=== PATIENT | female | born 1955 | race Caucasian/White ===

== ENCOUNTER 2018-07-15 11:10 | Inpatient (IN) | payer MEDICAID ==
[~2018-07-15] VITALS: Ht 170.2 cm; Wt 58.9 kg
[2018-07-15] MEDS ORDERED: ONDANSETRON 2MG/ML, 2ML IVPush ONE (12:00)
[2018-07-15] MEDS ORDERED: SODIUM CHLORIDE FLUSH 10ML SYR IVF ONE (12:00)
[2018-07-15 12:08] LABS: BASOPHILS # (AUTO) 0.05 x10^3/uL (0-0.1); BASOPHILS % (AUTO) 1 % (0-1); EOSINOPHILS # (AUTO) 0.15 x10^3/uL (0-0.4); EOSINOPHILS % (AUTO) 3 % (1-7); LYMPHOCYTES # (AUTO) 1.78 x10^3/uL (1-3.4); LYMPHOCYTES % (AUTO) 36 % (22-44); MD NO; MEAN CORPUSCULAR HEMOGLOBIN 33.8 pg (27.0-34.8); MEAN CORPUSCULAR HGB CONC 34.1 g/dL (32.4-35.8); MEAN CORPUSCULAR VOLUME 99.1 fL (80-100); MEAN PLATELET VOLUME 7.7 fL (7.4-10.4); MONOCYTES # (AUTO) 0.51 x10^3/uL (0.2-0.8); MONOCYTES % (AUTO) 10 % (2-9); NEUTROPHILS # (AUTO) 2.52 x10^3/uL (1.8-6.8); NEUTROPHILS % (AUTO) 50 % (42-75); PLATELET COUNT 314 x10^3/uL (130-400); RED BLOOD COUNT 3.72 x10^6/uL (3.82-5.3); RED CELL DISTRIBUTION WIDTH 13.8 % (9.6-15.2)
--- NOTE | 2018-07-15 12:10 | NUR ---
PT HERE FOR GENERALIZED WEAKNESS AND DETRIATING AT HOME. PT LOST SON 6 MONTHS AGO AND HAS BEEN VERY DEPRESSED. PT REPORTS SHE HAS HAD VARIOUS GI SYMPTOMS AND HAS HAD N/V/D. PT DENIES ANY TRAUMA. PT HAD ETOH TODAY. PT VSS AND PT IS TEARFUL. PT ON ARRIVAL CONNECTED TO MONITORS AND CALL LIGHT IN REACH. AWAITING FURHTER ORDERS. PT IS A/OX4 AND INDEPENDANT.
[2018-07-15 12:12] LABS: ALBUMIN 3.5 g/dL (3.4-5.0); ANION GAP 8 mmol/L (5-15); CALCIUM 8.5 mg/dL (8.5-10.1); CHLORIDE 100 mmol/L (98-107)
[2018-07-15 12:18] LABS: ALANINE AMINOTRANSFERASE 56 U/L (12-78); ALKALINE PHOSPHATASE 248 U/L (45-117); BILIRUBIN,TOTAL 0.8 mg/dL (0.2-1.0); CREATININE 0.79 mg/dL (0.55-1.02); TOTAL PROTEIN 7.7 g/dL (6.4-8.2)
[2018-07-15] MEDS ORDERED: ONDANSETRON 2MG/ML, 2ML ONE (13:02)
--- NOTE | 2018-07-15 13:07 | NUR ---
COMFORT BLANKET PROVIDED. PT REASSURED THAT WE ARE MONITORING HER. PT HELPED TO RESTROOM AND STOOL SAMPLE COLLECTED AND WALKED TO LABS.
[2018-07-15] MEDS ORDERED: KETOROLAC 30 MG/1 ML ONE (13:30)
[2018-07-15] MEDS ORDERED: KETOROLAC 30 MG/1 ML IVPush ONE (13:30)
[2018-07-15 13:50] LABS: CLOSTRIDIUM DIFFICILE ANTIGEN NEGATIVE; CLOSTRIDIUM DIFFICILE TOXIN NEGATIVE (Negative)
[2018-07-15] MEDS ORDERED: ALBUTEROL/IPRATROPIUM 2.5MG/0.5MG, 3 ML NPPB ONE (14:00)
--- NOTE | 2018-07-15 14:05 | NUR ---
PT MEDICATED PER EMAR AT THIS TIME.
[2018-07-15] MEDS ORDERED: ALBUTEROL/IPRATROPIUM 2.5MG/0.5MG, 3 ML ONE (14:21)
--- NOTE | 2018-07-15 14:28 | NUR ---
RT TO BEDSIDE AT THIS TIME.
--- NOTE | 2018-07-15 14:39 | NUR ---
PT [facility] ON 2L NC.
[2018-07-15] MEDS ORDERED: SODIUM CHLORIDE FLUSH 10ML SYR IVF PRN (16:00)
--- NOTE | 2018-07-15 16:27 | NUR ---
PT PLACED ON HOSPITAL BED.
--- NOTE | 2018-07-15 16:54 | NUR ---
HOSPITALIST TO BEDSIDE.
--- NOTE | 2018-07-15 17:04 | NUR ---
REPORT TO DARLIN RN
[2018-07-15] MEDS ORDERED: HALOPERIDOL 5 MG/ML IM PRN (17:30)
[2018-07-15] MEDS ORDERED: ACETAMINOPHEN 325 MG TABLET PO PRN (17:30)
[2018-07-15] MEDS ORDERED: hydrALAzine 20 MG/ML, 1ML IVPush PRN (17:30)
[2018-07-15] MEDS ORDERED: POLYETHYLENE GLYCOL 17 GM PACKET PO PRN (17:30)
[2018-07-15] MEDS ORDERED: ONDANSETRON 2MG/ML, 2ML IVPush PRN (17:30)
[2018-07-15] MEDS ORDERED: LORazepam 2 MG/ML, 1ML IVPush PRN (18:30)
[2018-07-15 19:19] VITALS: BP 124/79
[2018-07-15] MEDS ORDERED: CARV-39 PO (19:42)
[2018-07-15] MEDS: CARVEDILOL 3.125 MG TABLET PO SCH (20:04)
[2018-07-15] MEDS: KETOROLAC 30 MG/1 ML IVPush SCH (20:04)
[2018-07-15] MEDS: LORazepam 2 MG/ML, 1ML IVPush PRN (20:04)
[2018-07-15] MEDS ORDERED: LOSA50TA14 PO (20:05)
[2018-07-15] MEDS ORDERED: ATOR40TA78 PO (20:05)
[2018-07-15] MEDS: NICOTINE 14MG/24 HR PATCH.TD24 TD SCH (22:09)
[2018-07-15] MEDS: ENOXAPARIN 40 MG/0.4 ML SQ SCH (22:10)
[2018-07-15] MEDS: METHOCARBAMOL 500 MG TABLET PO SCH (22:10)
[2018-07-15] MEDS: PANTOPROZOLE 40MG TABLET PO SCH (22:10)
[2018-07-15] MEDS: CEFTRIAXONE PMX 2GM/50ML 50 ML IV SCH (22:10)
[2018-07-15] MEDS ORDERED: ALBUTEROL SULFATE 2.5 MG/3 ML NPPB PRN (22:30)
[2018-07-15] MEDS: AZITHROMYCIN 500 MG in SODIUM CHLORIDE 0.9% 250 ML IV SCH (23:15)
[2018-07-15] MEDS ORDERED: OMNIPAQUE 350 MG/ML, 100ML BOTTLE ONE (23:17)
[2018-07-16 00:22] VITALS: BP 156/95
[2018-07-16] MEDS: METHOCARBAMOL 500 MG TABLET PO SCH ×3 (02:45→14:10)
[2018-07-16] MEDS: KETOROLAC 30 MG/1 ML IVPush SCH ×3 (02:45→14:09)
[2018-07-16] MEDS: PANTOPROZOLE 40MG TABLET PO SCH ×2 (05:40→21:17)
[2018-07-16] MEDS: CARVEDILOL 3.125 MG TABLET PO SCH ×2 (05:40→18:00)
[2018-07-16] MEDS: LORazepam 2 MG/ML, 1ML IVPush PRN ×3 (05:41→21:16)
[2018-07-16 05:44] LABS: BASOPHILS # (AUTO) 0.04 x10^3/uL (0-0.1); BASOPHILS % (AUTO) 1 % (0-1); EOSINOPHILS % (AUTO) 0 % (1-7); LYMPHOCYTES % (AUTO) 11 % (22-44); MD NO; MEAN CORPUSCULAR HEMOGLOBIN 34.2 pg (27.0-34.8); MEAN CORPUSCULAR HGB CONC 34.4 g/dL (32.4-35.8); MEAN CORPUSCULAR VOLUME 99.4 fL (80-100); MONOCYTES # (AUTO) 0.37 x10^3/uL (0.2-0.8); MONOCYTES % (AUTO) 6 % (2-9); NEUTROPHILS # (AUTO) 5.59 x10^3/uL (1.8-6.8); NEUTROPHILS % (AUTO) 83 % (42-75); PLATELET COUNT 242 x10^3/uL (130-400); RED BLOOD COUNT 3.46 x10^6/uL (3.82-5.3); RED CELL DISTRIBUTION WIDTH 13.6 % (9.6-15.2)
[2018-07-16 05:48] LABS: ANION GAP 8 mmol/L (5-15); CALCIUM 8.3 mg/dL (8.5-10.1); CHLORIDE 101 mmol/L (98-107)
[2018-07-16 05:54] LABS: ALANINE AMINOTRANSFERASE 53 U/L (12-78); ALKALINE PHOSPHATASE 225 U/L (45-117); BILIRUBIN,TOTAL 0.5 mg/dL (0.2-1.0); CHOL/HDL RATIO 1.4; CHOLESTEROL, TOTAL 181 mg/dL (140-239); HDL CHOLESTEROL (DIRECT) 129 mg/dL (40-60); TOTAL PROTEIN 6.7 g/dL (6.4-8.2); TRIGLYCERIDES 42 mg/dL (50-200); VLDL CHOLESTEROL 8 mg/dL (0-25)
[2018-07-16 05:55] LABS: HDL CHOL % 71 % (28-40); LDL CHOLESTEROL,CALCULATED 44 mg/dL (54-169); LDL/HDL RATIO 0.3 (0.5-3.0)
[2018-07-16 07:13] VITALS: BP 132/84
[2018-07-16] MEDS: FUROSEMIDE 40 MG TABLET PO SCH (09:01)
[2018-07-16] MEDS: POTASSIUM CHLORIDE 20 MEQ PACKET PO SCH (09:01)
[2018-07-16 12:44] VITALS: BP 138/89
[2018-07-16 13:01] LABS: AMPHETAMINE SCREEN, URINE Negative (Negative); BARBITURATE SCREEN, URINE Negative (Negative); BENZODIAZEPINE SCREEN, URINE Negative (Negative); CANNABINOID SCREEN, URINE Positive (Negative); COCAINE SCREEN, URINE Negative (Negative); METHADONE SCREEN, URINE Negative (Negative); OPIATE SCREEN, URINE Negative (Negative)
[2018-07-16 19:02] VITALS: BP 136/90
[2018-07-16] MEDS ORDERED: KETOROLAC 30 MG/1 ML IV PRN (20:00)
[2018-07-16] MEDS ORDERED: MAGNESIUM SULFATE 4 GM in SODIUM CHLORIDE 0.9% 100 ML IV ONE (20:00)
[2018-07-16] MEDS: CEFTRIAXONE PMX 2GM/50ML 50 ML IV SCH (21:16)
[2018-07-16] MEDS: ENOXAPARIN 40 MG/0.4 ML SQ SCH (21:17)
[2018-07-16] MEDS: NICOTINE 14MG/24 HR PATCH.TD24 TD SCH (21:17)
[2018-07-16] MEDS: AZITHROMYCIN 500 MG in SODIUM CHLORIDE 0.9% 250 ML IV SCH (23:55)
[2018-07-17 00:20] VITALS: BP 156/105
[2018-07-17] MEDS: CARVEDILOL 3.125 MG TABLET PO SCH ×2 (05:21→17:49)
[2018-07-17] MEDS: LORazepam 2 MG/ML, 1ML IVPush PRN ×5 (05:21→22:27)
[2018-07-17] MEDS: PANTOPROZOLE 40MG TABLET PO SCH ×2 (05:21→21:33)
[2018-07-17 07:27] VITALS: BP 147/96
[2018-07-17 07:37] LABS: ALANINE AMINOTRANSFERASE 47 U/L (12-78); ALBUMIN 2.9 g/dL (3.4-5.0); ANION GAP 8 mmol/L (5-15); CALCIUM 8.1 mg/dL (8.5-10.1); CHLORIDE 102 mmol/L (98-107); CREATININE 0.89 mg/dL (0.55-1.02)
[2018-07-17 07:39] LABS: ALKALINE PHOSPHATASE 194 U/L (45-117); BILIRUBIN,TOTAL 0.4 mg/dL (0.2-1.0); TOTAL PROTEIN 6.6 g/dL (6.4-8.2)
[2018-07-17] MEDS ORDERED: ALBUTEROL/IPRATROPIUM 2.5MG/0.5MG, 3 ML ONE (08:30)
[2018-07-17] MEDS ORDERED: ALBUTEROL/IPRATROPIUM 2.5MG/0.5MG, 3 ML NPPB PRN ×2 (09:00)
[2018-07-17] MEDS: PROPRANOLOL 20 MG TABLET PO SCH ×3 (09:06→22:27)
[2018-07-17] MEDS: FUROSEMIDE 40 MG TABLET PO SCH (09:06)
[2018-07-17] MEDS: POTASSIUM CHLORIDE 20 MEQ PACKET PO SCH (09:06)
[2018-07-17 13:30] VITALS: BP 165/105
[2018-07-17] MEDS: CHLORDIAZEPOXIDE 25 MG CAPSULE PO SCH ×3 (13:33→21:34)
[2018-07-17] MEDS: BACLOFEN 10 MG TABLET PO SCH ×2 (17:49→21:00)
[2018-07-17 18:57] VITALS: BP 138/88
[2018-07-17] MEDS: CEFTRIAXONE PMX 2GM/50ML 50 ML IV SCH (21:32)
[2018-07-17] MEDS: NICOTINE 14MG/24 HR PATCH.TD24 TD SCH (21:33)
[2018-07-17] MEDS: ENOXAPARIN 40 MG/0.4 ML SQ SCH (21:33)
[2018-07-17] MEDS: AZITHROMYCIN 500 MG in SODIUM CHLORIDE 0.9% 250 ML IV SCH (23:05)
[2018-07-18 00:49] VITALS: BP 152/95
[2018-07-18] MEDS: LORazepam 2 MG/ML, 1ML IVPush PRN ×5 (04:00→22:22)
[2018-07-18] MEDS: CHLORDIAZEPOXIDE 25 MG CAPSULE PO SCH ×4 (05:38→20:50)
[2018-07-18] MEDS: PROPRANOLOL 20 MG TABLET PO SCH ×3 (05:38→21:19)
[2018-07-18] MEDS: PANTOPROZOLE 40MG TABLET PO SCH ×2 (05:38→20:50)
[2018-07-18] MEDS: CARVEDILOL 3.125 MG TABLET PO SCH ×2 (05:38→18:07)
[2018-07-18 07:10] VITALS: BP 145/94
[2018-07-18] MEDS: FUROSEMIDE 40 MG TABLET PO SCH (08:36)
[2018-07-18] MEDS: POTASSIUM CHLORIDE 20 MEQ PACKET PO SCH (08:36)
[2018-07-18] MEDS: BACLOFEN 10 MG TABLET PO SCH ×3 (08:36→20:50)
[2018-07-18] MEDS ORDERED: POTASSIUM CHLORIDE 20 MEQ, MAGNESIUM SULFATE 1 GM, THIAMINE 200 MG, FOLIC ACID 1 MG, MV... IV SCH (12:00)
[2018-07-18] MEDS ORDERED: POTASSIUM CHLORIDE 20 MEQ, MAGNESIUM SULFATE 1 GM, FOLIC ACID 1 MG, MVI ADULT 10 ML in ... IV SCH (12:52)
[2018-07-18 13:07] VITALS: BP 131/91
[2018-07-18 19:13] VITALS: BP 110/72
[2018-07-18] MEDS: CEFTRIAXONE PMX 2GM/50ML 50 ML IV SCH (20:50)
[2018-07-18] MEDS: ENOXAPARIN 40 MG/0.4 ML SQ SCH (20:51)
[2018-07-18] MEDS: NICOTINE 14MG/24 HR PATCH.TD24 TD SCH (20:51)
[2018-07-18] MEDS: AZITHROMYCIN 500 MG in SODIUM CHLORIDE 0.9% 250 ML IV SCH (23:19)
[2018-07-19 00:37] VITALS: BP 118/82
[2018-07-19] MEDS: LORazepam 2 MG/ML, 1ML IVPush PRN (02:54)
[2018-07-19] MEDS: PROPRANOLOL 20 MG TABLET PO SCH (06:22)
[2018-07-19] MEDS: PANTOPROZOLE 40MG TABLET PO SCH (06:22)
[2018-07-19] MEDS: CHLORDIAZEPOXIDE 25 MG CAPSULE PO SCH ×2 (06:23→11:02)
[2018-07-19] MEDS: CARVEDILOL 3.125 MG TABLET PO SCH (06:23)
[2018-07-19] MEDS: BACLOFEN 10 MG TABLET PO SCH (08:11)
[2018-07-19] MEDS: POTASSIUM CHLORIDE 20 MEQ PACKET PO SCH (08:11)
[2018-07-19] MEDS: FUROSEMIDE 40 MG TABLET PO SCH (08:11)
[2018-07-19] MEDS ORDERED: THIAMINE 100MG TABLET PO SCH (09:00)
[2018-07-19] MEDS ORDERED: PANT40TA5 PO (10:22)
[2018-07-19] MEDS ORDERED: NICO-486 TD (10:22)
[2018-07-19] MEDS ORDERED: FURO40TA6 PO (10:22)
[2018-07-19] MEDS ORDERED: AZIT500T5 PO (10:22)
[2018-07-19] MEDS ORDERED: POTA20PA25 PO (10:22)
[2018-07-19] MEDS ORDERED: librium PO (10:22)
[2018-07-19] MEDS ORDERED: PROP20TA PO (10:22)
[2018-07-19] MEDS ORDERED: FOLI-17 PO (10:22)
[2018-07-19] MEDS ORDERED: CARV6.2512 PO (10:22)
[2018-07-19] MEDS ORDERED: ONDA4TAB7 PO (10:22)
[2018-07-19] MEDS ORDERED: TRAM50TA2 PO (10:22)
[2018-07-19] MEDS ORDERED: BACL-19 PO (10:22)
[2018-07-19] MEDS ORDERED: THIA100T67 PO (10:22)
[2018-07-19] MEDS ORDERED: MULT-115 PO (10:22)
[2018-07-19] MEDS ORDERED: CEFD300C37 PO (10:22)
[2018-07-19 12:39] VITALS: BP 126/86
[2018-07-20] MEDS ORDERED: CARV-39 PO (13:51)
[2018-07-20] MEDS ORDERED: LOSA25TA25 PO (13:51)
== END 2018-07-19 14:40 | disposition home or self-care (01) | DRG 177 ==
LOC: ED 13:58 → EDIP 15:56 → 4WST 17:59
PROVIDERS: ADMIT Internal Medicine; ATTEND Internal Medicine
DX: J69.0 Pneumonitis due to inhalation of food and vomit (principal); J96.01 Acute respiratory failure with hypoxia; F10.239 Alcohol dependence with withdrawal, unspecified; J44.1 Chronic obstructive pulmonary disease with (acute) exacerbation; A08.4 Viral intestinal infection, unspecified; F10.229 Alcohol dependence with intoxication, unspecified; F17.200 Nicotine dependence, unspecified, uncomplicated; I50.9 Heart failure, unspecified; K21.9 Gastro-esophageal reflux disease without esophagitis; K70.10 Alcoholic hepatitis without ascites; Y90.8 Blood alcohol level of 240 mg/100 ml or more; Z95.0 Presence of cardiac pacemaker
CPT/HCPCS: 36415; 99285; J7620; 71046; 71275; 76700; 80053; 80061; 80307; 82962; 83690; 83735; 83880; 84100; 85025; 87040; 87070; 87205; 87324; 89055; 93005; 93306; 94640; 96374; 96375; G0378; J0456; J0696; J1650; J1885; J2405; J3475; J3480; Q9967; J0360; J1630; J2060; J7030; J7050; J7512

== ENCOUNTER 2018-07-20 13:26 | Emergency (ER) | payer MEDICAID ==
[~2018-07-20] VITALS: Ht 167.6 cm; Wt 59.0 kg
[~2018-07-20 13:26] MED LIST: ATOR40TA78 PO; AZIT500T5 PO; BACL-19 PO; CARV-39 PO; CARV6.2512 PO; CEFD300C37 PO; FOLI-17 PO; FURO40TA6 PO; LOSA50TA14 PO; MULT-115 PO; NICO-486 TD; ONDA4TAB7 PO; PANT40TA5 PO; POTA20PA25 PO; PROP20TA PO; THIA100T67 PO; TRAM50TA2 PO; librium PO
[2018-07-20 13:34] VITALS: BP 91/59
--- NOTE | 2018-07-20 13:37 | NUR ---
TO RADIOLOGY PER CHRISTIANO. FACE MASK GIVEN TO PT FOR COUGHING.
[2018-07-20] MEDS ORDERED: LOSA25TA25 PO (13:51)
[2018-07-20] MEDS ORDERED: CARV-39 PO (13:51)
--- NOTE | 2018-07-20 13:53 | NUR ---
PT IN ED ROOM 25. LAB AT BS.
[2018-07-20 14:15] LABS: BASOPHILS # (AUTO) 0.03 x10^3/uL (0-0.1); BASOPHILS % (AUTO) 1 % (0-1); EOSINOPHILS # (AUTO) 0.25 x10^3/uL (0-0.4); EOSINOPHILS % (AUTO) 4 % (1-7); LYMPHOCYTES # (AUTO) 1.32 x10^3/uL (1-3.4); LYMPHOCYTES % (AUTO) 20 % (22-44); MD NO; MEAN CORPUSCULAR HGB CONC 33.9 g/dL (32.4-35.8); MEAN CORPUSCULAR VOLUME 100.2 fL (80-100); MEAN PLATELET VOLUME 8.6 fL (7.4-10.4); MONOCYTES # (AUTO) 0.68 x10^3/uL (0.2-0.8); MONOCYTES % (AUTO) 10 % (2-9); NEUTROPHILS % (AUTO) 66 % (42-75); PLATELET COUNT 236 x10^3/uL (130-400); RED BLOOD COUNT 3.55 x10^6/uL (3.82-5.3); RED CELL DISTRIBUTION WIDTH 13.8 % (9.6-15.2)
[2018-07-20 14:23] LABS: INTERNATIONAL NORMALIZED RATIO 1.01 (0.93-1.1); PROTHROMBIN TIME 10.7 Seconds (9.6-11.5)
[2018-07-20 14:24] LABS: ALANINE AMINOTRANSFERASE 147 U/L (12-78); ALBUMIN 3.2 g/dL (3.4-5.0); ANION GAP 6 mmol/L (5-15); CALCIUM 8.4 mg/dL (8.5-10.1); CHLORIDE 97 mmol/L (98-107); CREATININE 1.25 mg/dL (0.55-1.02)
[2018-07-20 14:26] LABS: ALKALINE PHOSPHATASE 236 U/L (45-117); BILIRUBIN,TOTAL 0.4 mg/dL (0.2-1.0)
--- NOTE | 2018-07-20 14:40 | NUR ---
PT GETTING DRESSED, STATES "I'M LEAVING AND I'M GOING TO START DRINKING". PT'S DAUGHTER IN ROOM.
[2018-08-09] MEDS ORDERED: CHLO10CA6 PO (10:15)
[2018-08-09] MEDS ORDERED: TRAM50TA2 PO (10:15)
[2018-08-09] MEDS ORDERED: SERT50TA28 PO (10:16)
== END 2018-07-20 14:56 | disposition home or self-care (01) ==
LOC: ED 14:07
DX: F10.220 Alcohol dependence with intoxication, uncomplicated (principal); J44.9 Chronic obstructive pulmonary disease, unspecified; I10 Essential (primary) hypertension; E78.5 Hyperlipidemia, unspecified
CPT/HCPCS: 36415; 71046; 80053; 80307; 85025; 85610; 85730; 99284

== ENCOUNTER 2018-11-18 20:02 | Inpatient (IN) | payer MEDICAID ==
[~2018-11-18] VITALS: Ht 170.2 cm; Wt 66.6 kg
[~2018-11-18 20:02] MED LIST changes: +CHLO10CA6 PO; +LOSA25TA25 PO; +SERT50TA28 PO
--- NOTE | 2018-11-18 20:15 | NUR ---
PT BIB [facility] FOR 5 EPISODES OF BLOODY STOOL AND RIGHT SIDED ABD PAIN. ABD SOFT AND TENDER. PT ALSO COMPLAINING OF RIGHT LEG SWELLING AND PAIN OF UNKNOWN ETIOLOGY. PT STATES SHE WAS ON A PLANE YESTERDAY FROM [place]. PT TEARFUL AND SMELLING OF AN ODOR CONSISTENT WITH ETOH. PT STATES SHE HAS BEEN DRINKING AND IS AN ALCOHOLIC. PT STATES THAT SHE HASN'T HAD A DRINK IN MANY HOURS. PRE HOSPITAL FSBS 100. AWAITING MD ASSESSMENT.
--- NOTE | 2018-11-18 20:17 | NUR ---
UNABLE TO COMPLETE MED REC AT THIS TIME DUE TO PT INABILITY TO VERIFY MEDICATIONS
--- NOTE | 2018-11-18 20:35 | NUR ---
BEDSIDE RECTAL EXAM PERFORMED BY MD WITH RN AT BEDSIDE
--- NOTE | 2018-11-18 20:43 | NUR ---
REPORT FROM AYUSH MCLAUGHLIN. LAB AT BEDSIDE. CALL LIGHT IN REACH
[2018-11-18 20:53] LABS: BASOPHILS # (AUTO) 0.03 x10^3/uL (0-0.1); BASOPHILS % (AUTO) 1 % (0-1); EOSINOPHILS # (AUTO) 0.13 x10^3/uL (0-0.4); EOSINOPHILS % (AUTO) 3 % (1-7); LYMPHOCYTES # (AUTO) 1.29 x10^3/uL (1-3.4); LYMPHOCYTES % (AUTO) 28 % (22-44); MD NO; MEAN CORPUSCULAR HEMOGLOBIN 34.2 pg (27.0-34.8); MEAN CORPUSCULAR HGB CONC 33.6 g/dL (32.4-35.8); MEAN PLATELET VOLUME 8.2 fL (7.4-10.4); MONOCYTES # (AUTO) 0.28 x10^3/uL (0.2-0.8); MONOCYTES % (AUTO) 6 % (2-9); NEUTROPHILS # (AUTO) 2.92 x10^3/uL (1.8-6.8); NEUTROPHILS % (AUTO) 63 % (42-75); PLATELET COUNT 206 x10^3/uL (130-400); RED BLOOD COUNT 3.14 x10^6/uL (3.82-5.3); RED CELL DISTRIBUTION WIDTH 13.9 % (9.6-15.2)
[2018-11-18 21:04] LABS: ALANINE AMINOTRANSFERASE 262 U/L (12-78); ALBUMIN 3.3 g/dL (3.4-5.0); ANION GAP 13 mmol/L (5-15); CALCIUM 7.5 mg/dL (8.5-10.1); CHLORIDE 105 mmol/L (98-107); CREATININE 1.01 mg/dL (0.55-1.02)
[2018-11-18 21:11] LABS: ALKALINE PHOSPHATASE 198 U/L (45-117); TOTAL PROTEIN 6.6 g/dL (6.4-8.2)
--- NOTE | 2018-11-18 21:46 | NUR ---
PT RESTING. PT UNABLE TO PROVIDE UA AT THIS TIME. VSS. CALL LIGHT IN REACH
[2018-11-18] MEDS ORDERED: SODIUM CHLORIDE 0.9% 1,000ML IVBOLUS ONE (22:00)
[2018-11-18] MEDS ORDERED: SODIUM CHLORIDE FLUSH 10ML SYR IVF ONE (22:00)
[2018-11-18] MEDS ORDERED: MAALOX/HYOSCYAMINE/LIDOCAINE 45 ML BTL PO ONE (22:00)
[2018-11-18] MEDS ORDERED: MAALOX/HYOSCYAMINE/LIDOCAINE 45 ML BTL ONE (22:03)
--- NOTE | 2018-11-18 22:18 | NUR ---
PT ASSISTED TO BATHROOM. UA SENT TO LAB. PT MEDICATED FOR PAIN AND IS NOW RESTING. CALL LIGHT IN REACH
[2018-11-18 22:20] LABS: MICROSCOPIC NOT IND
[2018-11-18 22:35] LABS: CULTURE INDICATED? NO
--- NOTE | 2018-11-18 22:39 | NUR ---
PT TO US
--- NOTE | 2018-11-18 23:35 | NUR ---
pt placed on 2 l nc. pt ra sats when sleeping were 82. o2 sats improved to 96 on 2 l
[2018-11-19] MEDS ORDERED: SODIUM CHLORIDE 0.9% 1,000ML IVBOLUS ONE
[2018-11-19] MEDS ORDERED: SODIUM CHLORIDE FLUSH 10ML SYR IVF ONE
--- NOTE | 2018-11-19 00:04 | NUR ---
PT TO CT
[2018-11-19] MEDS ORDERED: OMNIPAQUE 350 MG/ML, 100ML BOTTLE ONE (00:05)
--- NOTE | 2018-11-19 01:06 | NUR ---
Pt resting. medrec complete. Report to Elmira MCLAUGHLIN
[2018-11-19] MEDS ORDERED: POTASSIUM CHLORIDE 20 MEQ, MAGNESIUM SULFATE 2 GM, THIAMINE 200 MG, MVI ADULT 10 ML, FO... IV SCH ×2 (01:25→01:32)
[2018-11-19] MEDS ORDERED: LABETALOL 5MG/ML, 20ML IVPush PRN (01:30)
[2018-11-19] MEDS ORDERED: THIAMINE 200 MG in DEXTROSE 5% 50 ML IVPB ONE (02:00)
[2018-11-19] MEDS ORDERED: POTASSIUM CHLORIDE 40 MEQ in SODIUM CHLORIDE 0.9% 500 ML IV ONE (02:00)
[2018-11-19] MEDS ORDERED: FOLIC ACID 5 MG/ML IM ONE (02:00)
[2018-11-19 02:16] LABS: INTERNATIONAL NORMALIZED RATIO 1.1 (0.93-1.1); PROTHROMBIN TIME 11.5 Seconds (9.6-11.5)
[2018-11-19 02:29] LABS: TROPONIN I < 0.015 ng/mL (0.000-0.045)
[2018-11-19 02:34] VITALS: BP 127/81
[2018-11-19] MEDS: morphine SULFATE 10 MG/ML, 1ML IVPush PRN ×2 (03:09→06:20)
[2018-11-19] MEDS: PROMETHAZINE 25 MG/ML, 1ML IM PRN (03:11)
[2018-11-19] MEDS: ESOMEPRAZOLE 40 MG IV IVPush SCH ×2 (03:11→10:01)
[2018-11-19 06:11] VITALS: BP 125/83
[2018-11-19] MEDS: CARVEDILOL 6.25 MG TABLET PO SCH ×2 (06:13→18:29)
[2018-11-19 06:48] VITALS: BP 127/73
[2018-11-19] MEDS ORDERED: CALCIUM GLUCONATE 4.6 MEQ in SODIUM CHLORIDE 0.9% 50 ML IV ONE (07:30)
[2018-11-19 07:36] LABS: TROPONIN I < 0.015 ng/mL (0.000-0.045)
[2018-11-19 07:37] LABS: ALBUMIN 3.2 g/dL (3.4-5.0); CHLORIDE 110 mmol/L (98-107)
[2018-11-19 07:50] LABS: ALANINE AMINOTRANSFERASE 390 U/L (12-78); ALKALINE PHOSPHATASE 247 U/L (45-117); ANION GAP 12 mmol/L (5-15); BILIRUBIN,TOTAL 1.2 mg/dL (0.2-1.0); CALCIUM 7.5 mg/dL (8.5-10.1); CREATININE 0.76 mg/dL (0.55-1.02); TOTAL PROTEIN 6.4 g/dL (6.4-8.2)
[2018-11-19] MEDS: LORazepam 2 MG/ML, 1ML IV PRN ×4 (07:56→21:44)
[2018-11-19] MEDS ORDERED: METRONIDAZOLE PMX 500MG/100ML 100 ML IV SCH (08:00)
[2018-11-19] MEDS ORDERED: ZOSYN PER PHARMACY MC PRN (08:00)
[2018-11-19] MEDS ORDERED: ACETAMINOPHEN 325 MG TABLET PO PRN (08:00)
[2018-11-19] MEDS ORDERED: DEXTROSE 5% IV ONE (08:00)
[2018-11-19] MEDS ORDERED: LORazepam 1MG TABLET PO PRN ×4 (08:00)
[2018-11-19] MEDS ORDERED: PIPERACILLIN/TAZO/PMX 3.375GM 50 ML IV SCH (08:00)
[2018-11-19] MEDS ORDERED: CALCIUM GLUCONATE IV ONE (08:00)
[2018-11-19] MEDS ORDERED: LORazepam 2 MG/ML, 1ML IV PRN ×2 (08:00)
[2018-11-19 08:16] LABS: AMPHETAMINE SCREEN, URINE Negative (Negative); BARBITURATE SCREEN, URINE Negative (Negative); BENZODIAZEPINE SCREEN, URINE Negative (Negative); CANNABINOID SCREEN, URINE Positive (Negative); COCAINE SCREEN, URINE Negative (Negative); METHADONE SCREEN, URINE Negative (Negative); OPIATE SCREEN, URINE Positive (Negative)
[2018-11-19 08:41] LABS: OCCULT BLOOD NEGATIVE (NEGATIVE)
[2018-11-19 08:43] LABS: CLOSTRIDIUM DIFFICILE ANTIGEN POSITIVE; CLOSTRIDIUM DIFFICILE TOXIN NEGATIVE (Negative)
[2018-11-19] MEDS: FOLIC ACID 1 MG TABLET PO SCH (10:01)
[2018-11-19] MEDS: THIAMINE 100MG TABLET PO SCH (10:01)
[2018-11-19] MEDS: MULTIVITAMINS/MINERALS TABLET PO SCH (10:01)
[2018-11-19] MEDS: VANCOMYCIN 50 MG/ML ORAL SUSP PO SCH ×2 (12:10→17:07)
[2018-11-19 14:00] VITALS: BP 146/89
[2018-11-19] MEDS: GABAPENTIN 300 MG CAPSULE PO PRN (15:25)
[2018-11-19] MEDS ORDERED: DEXTROSE 50%, 50ML SYRINGE IVPush PRN (16:00)
[2018-11-19] MEDS ORDERED: GLUCAGON 1 MG IM PRN (16:00)
[2018-11-19] MEDS ORDERED: DEXTROSE 4 GM TAB.CHEW PO PRN (16:00)
[2018-11-19] MEDS: HEPARIN 5,000 UNITS/ML, 1ML SQ SCH (17:08)
[2018-11-19 19:44] VITALS: BP 152/97
[2018-11-19] MEDS: SODIUM CHLORIDE FLUSH 10ML SYR IVF SCH (21:44)
[2018-11-20] MEDS: VANCOMYCIN 50 MG/ML ORAL SUSP PO SCH ×5 (00:12→23:54)
[2018-11-20] MEDS: HEPARIN 5,000 UNITS/ML, 1ML SQ SCH ×4 (00:12→23:54)
[2018-11-20 01:37] VITALS: BP 160/90
[2018-11-20] MEDS: LORazepam 0.5MG TABLET PO PRN (04:46)
[2018-11-20] MEDS: LORazepam 2 MG/ML, 1ML IV PRN ×4 (05:28→23:54)
[2018-11-20 05:35] VITALS: BP 164/98
[2018-11-20] MEDS: PROMETHAZINE 25 MG/ML, 1ML IM PRN (05:52)
[2018-11-20] MEDS: CARVEDILOL 6.25 MG TABLET PO SCH ×2 (05:53→17:14)
[2018-11-20 06:46] LABS: BASOPHILS # (AUTO) 0.02 x10^3/uL (0-0.1); BASOPHILS % (AUTO) 1 % (0-1); EOSINOPHILS # (AUTO) 0.31 x10^3/uL (0-0.4); EOSINOPHILS % (AUTO) 6 % (1-7); LYMPHOCYTES # (AUTO) 1.15 x10^3/uL (1-3.4); LYMPHOCYTES % (AUTO) 23 % (22-44); MD NO; MEAN CORPUSCULAR HEMOGLOBIN 35.1 pg (27.0-34.8); MEAN CORPUSCULAR HGB CONC 34.2 g/dL (32.4-35.8); MEAN CORPUSCULAR VOLUME 102.9 fL (80-100); MEAN PLATELET VOLUME 8.1 fL (7.4-10.4); MONOCYTES # (AUTO) 0.48 x10^3/uL (0.2-0.8); MONOCYTES % (AUTO) 10 % (2-9); NEUTROPHILS # (AUTO) 2.97 x10^3/uL (1.8-6.8); NEUTROPHILS % (AUTO) 60 % (42-75); PLATELET COUNT 171 x10^3/uL (130-400); RED BLOOD COUNT 2.89 x10^6/uL (3.82-5.3); RED CELL DISTRIBUTION WIDTH 14.2 % (9.6-15.2)
[2018-11-20 06:55] LABS: INTERNATIONAL NORMALIZED RATIO 1.02 (0.93-1.1); PROTHROMBIN TIME 10.7 Seconds (9.6-11.5)
[2018-11-20 06:57] LABS: ALANINE AMINOTRANSFERASE 223 U/L (12-78); ALBUMIN 3.1 g/dL (3.4-5.0); ANION GAP 6 mmol/L (5-15); CALCIUM 8.1 mg/dL (8.5-10.1); CHLORIDE 109 mmol/L (98-107)
[2018-11-20 07:00] LABS: ALKALINE PHOSPHATASE 220 U/L (45-117); BILIRUBIN,TOTAL 2.2 mg/dL (0.2-1.0); CREATININE 0.85 mg/dL (0.55-1.02); TOTAL PROTEIN 6.4 g/dL (6.4-8.2)
[2018-11-20 07:32] VITALS: BP 157/98
[2018-11-20] MEDS: ESOMEPRAZOLE 40 MG IV IVPush SCH (07:49)
[2018-11-20] MEDS: FOLIC ACID 1 MG TABLET PO SCH (07:49)
[2018-11-20] MEDS: MULTIVITAMINS/MINERALS TABLET PO SCH (07:49)
[2018-11-20] MEDS: THIAMINE 100MG TABLET PO SCH (07:49)
[2018-11-20] MEDS: SODIUM CHLORIDE FLUSH 10ML SYR IVF SCH ×2 (07:50→20:29)
[2018-11-20] MEDS: CHLORDIAZEPOXIDE 25 MG CAPSULE PO PRN ×2 (11:01→21:42)
[2018-11-20] MEDS ORDERED: POTASSIUM CHLORIDE 20 MEQ, MAGNESIUM SULFATE 2 GM, THIAMINE 200 MG, MVI ADULT 10 ML, FO... IV SCH (12:00)
[2018-11-20 12:49] VITALS: BP 158/103
[2018-11-20 13:31] LABS: OCCULT BLOOD NEGATIVE (NEGATIVE)
[2018-11-20] MEDS: SODIUM CHLORIDE 0.9% 1,000 ML IV SCH (14:15)
[2018-11-20 19:48] VITALS: BP 139/91
[2018-11-20] MEDS: GABAPENTIN 300 MG CAPSULE PO PRN (23:54)
[2018-11-21 00:37] VITALS: BP 155/92
[2018-11-21] MEDS: LORazepam 2 MG/ML, 1ML IV PRN ×2 (01:57→07:25)
[2018-11-21] MEDS: SODIUM CHLORIDE 0.9% 1,000 ML IV SCH (04:16)
[2018-11-21] MEDS: CHLORDIAZEPOXIDE 25 MG CAPSULE PO PRN ×3 (04:58→20:00)
[2018-11-21] MEDS: VANCOMYCIN 50 MG/ML ORAL SUSP PO SCH ×4 (04:58→23:57)
[2018-11-21] MEDS: CARVEDILOL 6.25 MG TABLET PO SCH ×2 (04:59→17:21)
[2018-11-21 05:32] LABS: ALBUMIN 2.8 g/dL (3.4-5.0); ANION GAP 8 mmol/L (5-15); CALCIUM 7.9 mg/dL (8.5-10.1); CHLORIDE 109 mmol/L (98-107)
[2018-11-21 05:36] LABS: % IRON SATURATION 40 % (20-55); ALANINE AMINOTRANSFERASE 152 U/L (12-78); ALKALINE PHOSPHATASE 200 U/L (45-117); CREATININE 0.69 mg/dL (0.55-1.02); IRON LEVEL 79 mcg/dL (50-170); TOTAL IRON BINDING CAPACITY 197 mcg/dL (250-450); TOTAL PROTEIN 6.2 g/dL (6.4-8.2)
[2018-11-21] MEDS: THIAMINE 100MG TABLET PO SCH (07:25)
[2018-11-21] MEDS: FOLIC ACID 1 MG TABLET PO SCH (07:25)
[2018-11-21] MEDS: MULTIVITAMINS/MINERALS TABLET PO SCH (07:25)
[2018-11-21] MEDS: HEPARIN 5,000 UNITS/ML, 1ML SQ SCH (07:25)
[2018-11-21] MEDS: SODIUM CHLORIDE FLUSH 10ML SYR IVF SCH ×2 (07:26→20:00)
[2018-11-21 07:33] VITALS: BP 151/99
[2018-11-21] MEDS: ENOXAPARIN 40 MG/0.4 ML SQ SCH (09:17)
[2018-11-21] MEDS: GABAPENTIN 300 MG CAPSULE PO PRN (12:38)
[2018-11-21 12:40] VITALS: BP 157/100
[2018-11-21] MEDS: morphine SULFATE 10 MG/ML, 1ML IVPush PRN (16:33)
[2018-11-21 16:35] VITALS: BP 153/97
[2018-11-21 17:25] VITALS: BP 154/96
[2018-11-21 19:21] VITALS: BP 150/89
[2018-11-21] MEDS: LORazepam 0.5MG TABLET PO PRN (20:00)
[2018-11-22 00:03] VITALS: BP 152/94
[2018-11-22] MEDS: LORazepam 0.5MG TABLET PO PRN ×2 (02:09→17:30)
[2018-11-22] MEDS: CHLORDIAZEPOXIDE 25 MG CAPSULE PO PRN ×4 (02:09→21:27)
[2018-11-22] MEDS: VANCOMYCIN 50 MG/ML ORAL SUSP PO SCH ×3 (04:54→17:30)
[2018-11-22] MEDS: CARVEDILOL 6.25 MG TABLET PO SCH ×2 (04:54→17:30)
[2018-11-22 05:09] LABS: BASOPHILS # (AUTO) 0.01 x10^3/uL (0-0.1); BASOPHILS % (AUTO) 0 % (0-1); EOSINOPHILS % (AUTO) 6 % (1-7); LYMPHOCYTES # (AUTO) 0.94 x10^3/uL (1-3.4); LYMPHOCYTES % (AUTO) 28 % (22-44); MD NO; MEAN CORPUSCULAR HEMOGLOBIN 34.1 pg (27.0-34.8); MEAN CORPUSCULAR HGB CONC 33.3 g/dL (32.4-35.8); MEAN CORPUSCULAR VOLUME 102.3 fL (80-100); MEAN PLATELET VOLUME 8.4 fL (7.4-10.4); MONOCYTES # (AUTO) 0.34 x10^3/uL (0.2-0.8); MONOCYTES % (AUTO) 10 % (2-9); NEUTROPHILS # (AUTO) 1.94 x10^3/uL (1.8-6.8); NEUTROPHILS % (AUTO) 57 % (42-75); PLATELET COUNT 141 x10^3/uL (130-400); RED CELL DISTRIBUTION WIDTH 13.9 % (9.6-15.2)
[2018-11-22 05:20] LABS: ALANINE AMINOTRANSFERASE 113 U/L (12-78); ALBUMIN 2.7 g/dL (3.4-5.0); ANION GAP 5 mmol/L (5-15); CHLORIDE 107 mmol/L (98-107); CREATININE 0.82 mg/dL (0.55-1.02)
[2018-11-22 05:23] LABS: ALKALINE PHOSPHATASE 199 U/L (45-117); BILIRUBIN,TOTAL 0.9 mg/dL (0.2-1.0); TOTAL PROTEIN 6.2 g/dL (6.4-8.2)
[2018-11-22 06:39] VITALS: BP 162/100
[2018-11-22] MEDS: ENOXAPARIN 40 MG/0.4 ML SQ SCH (08:47)
[2018-11-22] MEDS: MULTIVITAMINS/MINERALS TABLET PO SCH (08:48)
[2018-11-22] MEDS: AMLODIPINE 5 MG TABLET PO SCH ×2 (08:48→21:27)
[2018-11-22] MEDS: FOLIC ACID 1 MG TABLET PO SCH (08:48)
[2018-11-22] MEDS: LOSARTAN 25MG TABLET PO SCH (08:48)
[2018-11-22] MEDS: THIAMINE 100MG TABLET PO SCH (08:48)
[2018-11-22] MEDS: SODIUM CHLORIDE FLUSH 10ML SYR IVF SCH ×2 (08:49→21:27)
[2018-11-22] MEDS: morphine SULFATE 10 MG/ML, 1ML IVPush PRN ×2 (10:36→21:27)
[2018-11-22 12:24] VITALS: BP 141/94
[2018-11-22] MEDS: GABAPENTIN 300 MG CAPSULE PO PRN (16:22)
[2018-11-22 19:18] VITALS: BP 123/81
[2018-11-23] MEDS: morphine SULFATE 10 MG/ML, 1ML IVPush PRN ×6 (00:09→21:52)
[2018-11-23] MEDS: VANCOMYCIN 50 MG/ML ORAL SUSP PO SCH ×4 (00:09→18:33)
[2018-11-23 00:48] VITALS: BP 130/88
[2018-11-23 05:36] LABS: ALBUMIN 2.9 g/dL (3.4-5.0); ANION GAP 7 mmol/L (5-15); CALCIUM 8.3 mg/dL (8.5-10.1); CHLORIDE 103 mmol/L (98-107)
[2018-11-23 05:41] LABS: ALANINE AMINOTRANSFERASE 127 U/L (12-78); ALKALINE PHOSPHATASE 222 U/L (45-117); BILIRUBIN,TOTAL 0.6 mg/dL (0.2-1.0); CREATININE 0.77 mg/dL (0.55-1.02); TOTAL PROTEIN 6.5 g/dL (6.4-8.2)
[2018-11-23] MEDS: CHLORDIAZEPOXIDE 25 MG CAPSULE PO PRN ×3 (05:48→21:02)
[2018-11-23] MEDS: CARVEDILOL 6.25 MG TABLET PO SCH ×2 (05:48→18:34)
[2018-11-23 07:45] VITALS: BP 131/91
[2018-11-23] MEDS: SODIUM CHLORIDE FLUSH 10ML SYR IVF SCH ×2 (09:42→21:02)
[2018-11-23] MEDS: LOSARTAN 25MG TABLET PO SCH (09:42)
[2018-11-23] MEDS: FOLIC ACID 1 MG TABLET PO SCH (09:42)
[2018-11-23] MEDS: THIAMINE 100MG TABLET PO SCH (09:42)
[2018-11-23] MEDS: MULTIVITAMINS/MINERALS TABLET PO SCH (09:42)
[2018-11-23] MEDS: AMLODIPINE 5 MG TABLET PO SCH ×2 (09:42→21:02)
[2018-11-23] MEDS: ENOXAPARIN 40 MG/0.4 ML SQ SCH (09:43)
[2018-11-23] MEDS: LORazepam 0.5MG TABLET PO PRN (12:10)
[2018-11-23] MEDS: GABAPENTIN 300 MG CAPSULE PO PRN (12:10)
[2018-11-23 15:06] VITALS: BP 113/64
[2018-11-23 20:06] VITALS: BP 106/73
[2018-11-23] MEDS: PROMETHAZINE 25 MG/ML, 1ML IM PRN (21:52)
[2018-11-24] MEDS: VANCOMYCIN 50 MG/ML ORAL SUSP PO SCH ×4 (00:15→17:17)
[2018-11-24 01:15] VITALS: BP 129/74
[2018-11-24] MEDS: morphine SULFATE 10 MG/ML, 1ML IVPush PRN (03:13)
[2018-11-24 04:41] LABS: BASOPHILS # (AUTO) 0.04 x10^3/uL (0-0.1); BASOPHILS % (AUTO) 1 % (0-1); EOSINOPHILS # (AUTO) 0.27 x10^3/uL (0-0.4); EOSINOPHILS % (AUTO) 7 % (1-7); LYMPHOCYTES # (AUTO) 1.45 x10^3/uL (1-3.4); LYMPHOCYTES % (AUTO) 35 % (22-44); MD NO; MEAN CORPUSCULAR HEMOGLOBIN 34.4 pg (27.0-34.8); MEAN CORPUSCULAR HGB CONC 33.3 g/dL (32.4-35.8); MEAN CORPUSCULAR VOLUME 103.3 fL (80-100); MEAN PLATELET VOLUME 8.1 fL (7.4-10.4); MONOCYTES % (AUTO) 12 % (2-9); NEUTROPHILS # (AUTO) 1.83 x10^3/uL (1.8-6.8); NEUTROPHILS % (AUTO) 45 % (42-75); PLATELET COUNT 200 x10^3/uL (130-400); RED BLOOD COUNT 3.05 x10^6/uL (3.82-5.3); RED CELL DISTRIBUTION WIDTH 15.7 % (9.6-15.2)
[2018-11-24 04:49] LABS: ALANINE AMINOTRANSFERASE 152 U/L (12-78); ANION GAP 5 mmol/L (5-15); CALCIUM 8.4 mg/dL (8.5-10.1); CHLORIDE 104 mmol/L (98-107); CREATININE 0.82 mg/dL (0.55-1.02)
[2018-11-24 04:51] LABS: ALKALINE PHOSPHATASE 282 U/L (45-117); BILIRUBIN,TOTAL 0.4 mg/dL (0.2-1.0); TOTAL PROTEIN 6.7 g/dL (6.4-8.2)
[2018-11-24] MEDS: CARVEDILOL 6.25 MG TABLET PO SCH ×2 (05:45→17:17)
[2018-11-24 07:51] VITALS: BP 137/77
[2018-11-24] MEDS: ENOXAPARIN 40 MG/0.4 ML SQ SCH (08:43)
[2018-11-24] MEDS: FOLIC ACID 1 MG TABLET PO SCH (08:43)
[2018-11-24] MEDS: SODIUM CHLORIDE FLUSH 10ML SYR IVF SCH ×2 (08:43→21:17)
[2018-11-24] MEDS: CHLORDIAZEPOXIDE 25 MG CAPSULE PO PRN ×2 (08:43→18:27)
[2018-11-24] MEDS: LOSARTAN 25MG TABLET PO SCH (08:43)
[2018-11-24] MEDS: MULTIVITAMINS/MINERALS TABLET PO SCH (08:44)
[2018-11-24] MEDS: OXYcodone IR 5MG TABLET PO PRN (08:44)
[2018-11-24] MEDS: THIAMINE 100MG TABLET PO SCH (08:44)
[2018-11-24] MEDS: MORPHINE SULFATE 4 MG/ML, 1ML IVPush PRN ×2 (11:39→17:51)
[2018-11-24 13:04] LABS: ANA SCREEN NEGATIVE (Negative)
[2018-11-24 13:44] VITALS: BP 127/90
[2018-11-24] MEDS ORDERED: GOLYTELY 4,000ML ORAL.SOL PO ONE (14:00)
[2018-11-24] MEDS: SODIUM CHLORIDE 0.9% 1,000 ML IV SCH (14:22)
[2018-11-24 17:18] VITALS: BP 134/81
[2018-11-24 18:42] VITALS: BP 145/92
[2018-11-24] MEDS: LORazepam 0.5MG TABLET PO PRN (22:25)
[2018-11-25] MEDS: VANCOMYCIN 50 MG/ML ORAL SUSP PO SCH ×4 (00:04→17:53)
[2018-11-25] MEDS: MORPHINE SULFATE 4 MG/ML, 1ML IVPush PRN ×3 (00:04→22:39)
[2018-11-25 00:48] VITALS: BP 132/85
[2018-11-25] MEDS: SODIUM CHLORIDE 0.9% 1,000 ML IV SCH ×2 (03:27→20:27)
[2018-11-25] MEDS: CARVEDILOL 6.25 MG TABLET PO SCH ×2 (05:31→17:53)
[2018-11-25 05:53] LABS: CHLORIDE 108 mmol/L (98-107)
[2018-11-25 05:57] LABS: MEAN CORPUSCULAR HEMOGLOBIN 34.3 pg (27.0-34.8); MEAN CORPUSCULAR HGB CONC 33.2 g/dL (32.4-35.8); MEAN CORPUSCULAR VOLUME 103.3 fL (80-100); MEAN PLATELET VOLUME 8.3 fL (7.4-10.4); PLATELET COUNT 207 x10^3/uL (130-400); RED BLOOD COUNT 2.98 x10^6/uL (3.82-5.3); RED CELL DISTRIBUTION WIDTH 15.5 % (9.6-15.2)
[2018-11-25 06:01] LABS: ALANINE AMINOTRANSFERASE 99 U/L (12-78); ALKALINE PHOSPHATASE 279 U/L (45-117); ANION GAP 5 mmol/L (5-15); BILIRUBIN,TOTAL 0.9 mg/dL (0.2-1.0); CALCIUM 8.5 mg/dL (8.5-10.1); CREATININE 0.78 mg/dL (0.55-1.02); TOTAL PROTEIN 6.8 g/dL (6.4-8.2)
[2018-11-25 06:17] LABS: BASOPHILS # (AUTO) 0.02 x10^3/uL (0-0.1); BASOPHILS % (AUTO) 0 % (0-1); EOSINOPHILS # (AUTO) 0.34 x10^3/uL (0-0.4); EOSINOPHILS % (AUTO) 6 % (1-7); LYMPHOCYTES # (AUTO) 1.36 x10^3/uL (1-3.4); LYMPHOCYTES % (AUTO) 23 % (22-44); MD SCAN; MONOCYTES # (AUTO) 0.63 x10^3/uL (0.2-0.8); MONOCYTES % (AUTO) 11 % (2-9); NEUTROPHILS # (AUTO) 3.58 x10^3/uL (1.8-6.8); NEUTROPHILS % (AUTO) 60 % (42-75)
[2018-11-25 06:54] VITALS: BP 146/93
[2018-11-25] MEDS ORDERED: PROPOFOL 10 MG/ML, 20ML ONE (07:28)
[2018-11-25] MEDS ORDERED: OXYcodone 5 MG/5 ML ORAL.SOL UDC ONE (08:25)
[2018-11-25] MEDS ORDERED: FENTANYL PF 100 MCG/2ML ONE (08:27)
[2018-11-25] MEDS ORDERED: FENTANYL PF 100 MCG/2ML IV PRN (08:30)
[2018-11-25] MEDS ORDERED: ONDANSETRON ODT 8 MG PO PRN (08:30)
[2018-11-25] MEDS ORDERED: OXYcodone 5 MG/5 ML ORAL.SOL UDC PO PRN (08:30)
[2018-11-25] MEDS ORDERED: ONDANSETRON 2MG/ML, 2ML IV PRN (08:30)
[2018-11-25] MEDS: CHLORDIAZEPOXIDE 25 MG CAPSULE PO PRN ×2 (10:51→17:53)
[2018-11-25] MEDS: MULTIVITAMINS/MINERALS TABLET PO SCH (10:51)
[2018-11-25] MEDS: FOLIC ACID 1 MG TABLET PO SCH (10:52)
[2018-11-25] MEDS: SODIUM CHLORIDE FLUSH 10ML SYR IVF SCH ×2 (10:52→20:28)
[2018-11-25] MEDS: LOSARTAN 25MG TABLET PO SCH (10:52)
[2018-11-25] MEDS: THIAMINE 100MG TABLET PO SCH (10:52)
[2018-11-25] MEDS: ENOXAPARIN 40 MG/0.4 ML SQ SCH (10:53)
[2018-11-25] MEDS: LIDODERM 5% PATCH TD SCH (10:53)
[2018-11-25 12:23] VITALS: BP 131/86
[2018-11-25] MEDS: OXYcodone IR 5MG TABLET PO PRN ×2 (12:55→20:25)
[2018-11-25 18:53] VITALS: BP 123/73
[2018-11-26 00:41] VITALS: BP 133/86
[2018-11-26] MEDS: VANCOMYCIN 50 MG/ML ORAL SUSP PO SCH ×2 (00:43→05:57)
[2018-11-26] MEDS: OXYcodone IR 5MG TABLET PO PRN (04:33)
[2018-11-26 05:22] LABS: ALBUMIN 2.9 g/dL (3.4-5.0); ANION GAP 4 mmol/L (5-15); CALCIUM 8.3 mg/dL (8.5-10.1); CHLORIDE 107 mmol/L (98-107)
[2018-11-26 05:26] LABS: ALANINE AMINOTRANSFERASE 72 U/L (12-78); ALKALINE PHOSPHATASE 246 U/L (45-117); BILIRUBIN,TOTAL 0.5 mg/dL (0.2-1.0); CREATININE 0.75 mg/dL (0.55-1.02); TOTAL PROTEIN 6.5 g/dL (6.4-8.2)
[2018-11-26 05:33] LABS: BASOPHILS # (AUTO) 0.03 x10^3/uL (0-0.1); BASOPHILS % (AUTO) 1 % (0-1); EOSINOPHILS # (AUTO) 0.27 x10^3/uL (0-0.4); EOSINOPHILS % (AUTO) 6 % (1-7); LYMPHOCYTES # (AUTO) 1.25 x10^3/uL (1-3.4); LYMPHOCYTES % (AUTO) 28 % (22-44); MD NO; MEAN CORPUSCULAR VOLUME 103.3 fL (80-100); MEAN PLATELET VOLUME 8.3 fL (7.4-10.4); MONOCYTES # (AUTO) 0.61 x10^3/uL (0.2-0.8); MONOCYTES % (AUTO) 14 % (2-9); NEUTROPHILS # (AUTO) 2.35 x10^3/uL (1.8-6.8); NEUTROPHILS % (AUTO) 52 % (42-75); PLATELET COUNT 197 x10^3/uL (130-400); RED BLOOD COUNT 2.82 x10^6/uL (3.82-5.3); RED CELL DISTRIBUTION WIDTH 15.3 % (9.6-15.2)
[2018-11-26 05:55] VITALS: BP 160/95
[2018-11-26] MEDS: CARVEDILOL 6.25 MG TABLET PO SCH (05:57)
[2018-11-26 07:29] VITALS: BP 162/88
[2018-11-26] MEDS: LOSARTAN 25MG TABLET PO SCH (07:53)
[2018-11-26] MEDS: THIAMINE 100MG TABLET PO SCH (07:53)
[2018-11-26] MEDS: SODIUM CHLORIDE FLUSH 10ML SYR IVF SCH (07:53)
[2018-11-26] MEDS: MULTIVITAMINS/MINERALS TABLET PO SCH (07:53)
[2018-11-26] MEDS: FOLIC ACID 1 MG TABLET PO SCH (07:53)
[2018-11-26] MEDS: LORazepam 0.5MG TABLET PO PRN (08:00)
[2018-11-26] MEDS: CHLORDIAZEPOXIDE 25 MG CAPSULE PO PRN (08:00)
[2018-11-26] MEDS: SODIUM CHLORIDE 0.9% 1,000 ML IV SCH (09:20)
[2018-11-26] MEDS ORDERED: FOLI-17 PO (10:12)
[2018-11-26] MEDS ORDERED: VANC1VIA3 PO (10:12)
[2018-11-26] MEDS ORDERED: GABA300C10 PO (10:12)
[2018-11-26] MEDS ORDERED: MULT-484 PO (10:12)
[2018-11-26] MEDS ORDERED: LIDO700A20 TD (10:12)
[2018-11-26] MEDS ORDERED: THIA100T67 PO (10:12)
[2018-11-26] MEDS: LIDODERM 5% PATCH TD SCH (10:30)
[2018-11-26] MEDS: ENOXAPARIN 40 MG/0.4 ML SQ SCH (10:30)
== END 2018-11-26 12:07 | disposition home or self-care (01) | DRG 372 ==
LOC: ED 22:08 → 4WST 11-19 02:25
PROVIDERS: ADMIT Family Medicine; ATTEND Family Medicine
PROC: 0DB68ZX Excision of Stomach, Via Natural or Artificial Opening Endoscopic, Diagnostic (ICD-10-PCS; 2018-11-25)
PROC: 0DBE8ZX Excision of Large Intestine, Via Natural or Artificial Opening Endoscopic, Diagnostic (ICD-10-PCS; 2018-11-25)
PROC: 0DB98ZX Excision of Duodenum, Via Natural or Artificial Opening Endoscopic, Diagnostic (ICD-10-PCS; principal; 2018-11-25 07:30)
DX: A04.72 Enterocolitis due to Clostridium difficile, not specified as recurrent (principal); F10.239 Alcohol dependence with withdrawal, unspecified; I50.32 Chronic diastolic (congestive) heart failure; D50.9 Iron deficiency anemia, unspecified; D53.9 Nutritional anemia, unspecified; E78.5 Hyperlipidemia, unspecified; E83.42 Hypomagnesemia; E83.51 Hypocalcemia; E86.0 Dehydration; E87.6 Hypokalemia; F17.200 Nicotine dependence, unspecified, uncomplicated; F41.9 Anxiety disorder, unspecified; I11.0 Hypertensive heart disease with heart failure; I27.20 Pulmonary hypertension, unspecified; I44.7 Left bundle-branch block, unspecified; J44.9 Chronic obstructive pulmonary disease, unspecified; K21.9 Gastro-esophageal reflux disease without esophagitis; K64.4 Residual hemorrhoidal skin tags; K64.8 Other hemorrhoids; K70.11 Alcoholic hepatitis with ascites; M81.0 Age-related osteoporosis without current pathological fracture; Z82.49 Family history of ischemic heart disease and other diseases of the circulatory system; Z83.3 Family history of diabetes mellitus; Z86.19 Personal history of other infectious and parasitic diseases; Z91.19 Patient's noncompliance with other medical treatment and regimen; Z95.810 Presence of automatic (implantable) cardiac defibrillator; Z90.49 Acquired absence of other specified parts of digestive tract
CPT/HCPCS: 36415; 82570; 96360; 96361; 99285; J3370; J7042; 74177; 76700; 80053; 80074; 80307; 81003; 81050; 82140; 82272; 82330; 82390; 82525; 82728; 82962; 83540; 83550; 83605; 83690; 83735; 83880; 84100; 84484; 85025; 85610; 86038; 86663; 86664; 86665; 86790; 87040; 87324; 87493; 87496; 87517; 88305; 93005; G0378; J0610; J1644; J1650; J2550; J2704; J3010; J3411; J3475; J3480; Q9967; J2060; J2270; J7030; J7040

== ENCOUNTER 2018-12-09 08:50 | Observation (INO) | payer MEDICAID ==
[~2018-12-09] VITALS: Ht 170.2 cm; Wt 58.8 kg
[~2018-12-09 08:50] MED LIST changes: +GABA300C10 PO; +LIDO700A20 TD; +MULT-484 PO; +VANC1VIA3 PO
--- NOTE | 2018-12-09 08:58 | NUR ---
BIB [facility] FOR C/O LBP STARTED A FEW DAYS AFTER PT FELL AND BROKE RIBS ON L SIDE 9TH RIB. PT STATES IT CAUSES PINCHED NERVES AND PT HAS GLF. FELL 12/03/18. WAS ADMITTED RECENTLY FOR CHF, C-DIFF. 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 PT STATES SHE HAS A PACEMAKER AND HAS HX A FIB. PT PLACED ON CARDIAC MONITORS. WARM BLANKET PROVIDED. PT RESTING ON GURNEY. NADN. VSS.
[2018-12-09] MEDS ORDERED: SODIUM CHLORIDE FLUSH 10ML SYR IVF ONE (09:30)
[2018-12-09] MEDS ORDERED: KETOROLAC 30 MG/1 ML IVPush ONE (09:30)
[2018-12-09] MEDS ORDERED: ONDANSETRON 2MG/ML, 2ML IVPush ONE (09:30)
--- NOTE | 2018-12-09 09:31 | NUR ---
PT PRESENTS WITH LS BACK AND RIB PAIN FROM A FALL 2 DAYS AGO. VSSue. ARIANNA.
--- NOTE | 2018-12-09 09:35 | NUR ---
PT INSTRUCTED NOT TO GET UP WITHOUT STAFF ASSISTANCE, PT VERB UNDERSTANDING
[2018-12-09 09:42] LABS: BASOPHILS # (AUTO) 0.05 x10^3/uL (0-0.1); BASOPHILS % (AUTO) 1 % (0-1); EOSINOPHILS # (AUTO) 0.54 x10^3/uL (0-0.4); EOSINOPHILS % (AUTO) 6 % (1-7); LYMPHOCYTES # (AUTO) 1.28 x10^3/uL (1-3.4); LYMPHOCYTES % (AUTO) 15 % (22-44); MD NO; MEAN CORPUSCULAR HEMOGLOBIN 33.3 pg (27.0-34.8); MEAN CORPUSCULAR HGB CONC 32.6 g/dL (32.4-35.8); MEAN CORPUSCULAR VOLUME 102.1 fL (80-100); MEAN PLATELET VOLUME 7.7 fL (7.4-10.4); MONOCYTES # (AUTO) 0.71 x10^3/uL (0.2-0.8); MONOCYTES % (AUTO) 8 % (2-9); NEUTROPHILS # (AUTO) 5.97 x10^3/uL (1.8-6.8); NEUTROPHILS % (AUTO) 70 % (42-75); PLATELET COUNT 468 x10^3/uL (130-400); RED BLOOD COUNT 3.61 x10^6/uL (3.82-5.3); RED CELL DISTRIBUTION WIDTH 14.3 % (9.6-15.2)
[2018-12-09] MEDS ORDERED: MORPHINE SULFATE 4 MG/ML, 1ML ONE ×2 (09:52→11:39)
[2018-12-09] MEDS ORDERED: ONDANSETRON 2MG/ML, 2ML ONE (09:52)
[2018-12-09] MEDS ORDERED: KETOROLAC 30 MG/1 ML ONE (09:52)
[2018-12-09 09:53] LABS: ALBUMIN 3.6 g/dL (3.4-5.0); ANION GAP 8 mmol/L (5-15); CALCIUM 9.1 mg/dL (8.5-10.1); CHLORIDE 98 mmol/L (98-107); CREATININE 0.75 mg/dL (0.55-1.02)
[2018-12-09] MEDS: MORPHINE SULFATE 4 MG/ML, 1ML IVPush PRN ×2 (09:56→12:04)
--- NOTE | 2018-12-09 10:01 | NUR ---
PT MEDICATED FOR PAIN AND NAUSEA. PT DENIES ADDITIONAL NEEDS. VSS. NAD.
--- NOTE | 2018-12-09 10:50 | NUR ---
Patient is resting comfortably in bed. Vital Signs within normal limits.
--- NOTE | 2018-12-09 11:07 | NUR ---
NEHAL SUSANA NOTIFIED PT CXR READ AVAILABLE.
[2018-12-09] MEDS ORDERED: CEFTRIAXONE PMX 1GM/50ML 50 ML IVPB ONE (11:30)
[2018-12-09] MEDS ORDERED: AZITHROMYCIN 500 MG in SODIUM CHLORIDE 0.9% 250 ML IVPB ONE (11:30)
[2018-12-09] MEDS ORDERED: CEFTRIAXONE PMX 1GM/50ML 50 ML ONE (11:39)
[2018-12-09] MEDS ORDERED: OMNIPAQUE 350 MG/ML, 100ML BOTTLE ONE (11:55)
--- NOTE | 2018-12-09 12:02 | NUR ---
PT BACK IN ROOM. PT C/O PAIN. PT MEDICATED FOR PAIN AND ABX RUNNING.
[2018-12-09] MEDS ORDERED: IBUPROFEN 600 MG TABLET PO PRN (13:00)
[2018-12-09] MEDS ORDERED: GABAPENTIN 300 MG CAPSULE PO PRN (13:00)
[2018-12-09] MEDS ORDERED: GUAIFENESIN/DM 200-20MG, 10ML UDC PO PRN (13:00)
[2018-12-09] MEDS ORDERED: BACLOFEN 10 MG TABLET PO PRN (13:00)
[2018-12-09] MEDS ORDERED: ACETAMINOPHEN 325 MG TABLET PO PRN (13:00)
[2018-12-09] MEDS ORDERED: hydrALAzine 20 MG/ML, 1ML IVPush PRN (13:00)
--- NOTE | 2018-12-09 13:08 | NUR ---
PT OUT OF ROOM FOR IMAGING.
--- NOTE | 2018-12-09 13:20 | NUR ---
PT RESTING ON CHRISTIANO. VSS. AWARE OF POC FOR ADMIT.
[2018-12-09 14:00] VITALS: BP 152/96
[2018-12-09] MEDS: VANCOMYCIN 50 MG/ML ORAL SUSP PO SCH ×2 (16:32→22:36)
[2018-12-09] MEDS: CARVEDILOL 25 MG TABLET PO SCH (16:32)
[2018-12-09] MEDS: ONDANSETRON 2MG/ML, 2ML IVPush PRN (16:32)
[2018-12-09] MEDS: ENOXAPARIN 40 MG/0.4 ML SQ SCH (16:32)
[2018-12-09] MEDS: LIDODERM 5% PATCH TD SCH ×2 (16:33)
[2018-12-09 19:07] VITALS: BP 109/72
[2018-12-09] MEDS: KETOROLAC 30 MG/1 ML IV PRN (20:41)
[2018-12-09] MEDS ORDERED: ATORVASTATIN 40 MG TABLET PO SCH (21:00)
[2018-12-10] MEDS ORDERED: LIDODERM REMOVE PATCH NOTE XX SCH ×2 (01:00)
[2018-12-10 01:52] VITALS: BP 106/67
[2018-12-10 04:26] LABS: BASOPHILS # (AUTO) 0.04 x10^3/uL (0-0.1); BASOPHILS % (AUTO) 1 % (0-1); EOSINOPHILS # (AUTO) 0.65 x10^3/uL (0-0.4); EOSINOPHILS % (AUTO) 11 % (1-7); LYMPHOCYTES # (AUTO) 1.45 x10^3/uL (1-3.4); LYMPHOCYTES % (AUTO) 25 % (22-44); MD NO; MEAN CORPUSCULAR HEMOGLOBIN 33.3 pg (27.0-34.8); MEAN CORPUSCULAR HGB CONC 32.4 g/dL (32.4-35.8); MEAN CORPUSCULAR VOLUME 102.8 fL (80-100); MEAN PLATELET VOLUME 7.6 fL (7.4-10.4); MONOCYTES # (AUTO) 0.66 x10^3/uL (0.2-0.8); MONOCYTES % (AUTO) 11 % (2-9); NEUTROPHILS # (AUTO) 3.09 x10^3/uL (1.8-6.8); NEUTROPHILS % (AUTO) 53 % (42-75); PLATELET COUNT 387 x10^3/uL (130-400); RED BLOOD COUNT 3.21 x10^6/uL (3.82-5.3); RED CELL DISTRIBUTION WIDTH 14.3 % (9.6-15.2)
[2018-12-10 04:36] LABS: ANION GAP 6 mmol/L (5-15); CALCIUM 8.2 mg/dL (8.5-10.1); CHLORIDE 102 mmol/L (98-107); CREATININE 0.89 mg/dL (0.55-1.02)
[2018-12-10] MEDS: VANCOMYCIN 50 MG/ML ORAL SUSP PO SCH ×3 (05:12→15:50)
[2018-12-10 07:19] LABS: ALBUMIN 2.9 g/dL (3.4-5.0); BILIRUBIN, DIRECT 0.3 mg/dL (0.1-0.2)
[2018-12-10 07:21] LABS: BILIRUBIN,INDIRECT 0.3 mg/dL (0.0-2.0); BILIRUBIN,TOTAL 0.6 mg/dL (0.2-1.0); TOTAL PROTEIN 6.9 g/dL (6.4-8.2)
[2018-12-10 07:35] VITALS: BP 134/83
[2018-12-10] MEDS: CARVEDILOL 25 MG TABLET PO SCH (08:38)
[2018-12-10] MEDS ORDERED: THIAMINE 100MG TABLET PO SCH (09:00)
[2018-12-10] MEDS ORDERED: MULTIVITAMINS/MINERALS TABLET PO SCH (09:00)
[2018-12-10] MEDS ORDERED: FOLIC ACID 1 MG TABLET PO SCH (09:00)
[2018-12-10] MEDS ORDERED: CEFTRIAXONE PMX 1GM/50ML 50 ML IV SCH (10:00)
[2018-12-10] MEDS ORDERED: AZITHROMYCIN 500 MG in SODIUM CHLORIDE 0.9% 250 ML IV SCH (10:00)
[2018-12-10] MEDS: KETOROLAC 30 MG/1 ML IV PRN (10:27)
[2018-12-10 12:30] VITALS: BP 131/83
[2018-12-10] MEDS: ONDANSETRON 2MG/ML, 2ML IVPush PRN (12:53)
[2018-12-10] MEDS: LIDODERM 5% PATCH TD SCH ×2 (15:43)
[2018-12-10] MEDS: ENOXAPARIN 40 MG/0.4 ML SQ SCH (15:43)
== END 2018-12-10 16:20 | disposition home or self-care (01) ==
LOC: ED 09:48 → EDIP 13:45 → 3NW 13:50
PROVIDERS: ADMIT Internal Medicine; ATTEND Internal Medicine
DX: S22.32XA Fracture of one rib, left side, initial encounter for closed fracture (principal); J98.11 Atelectasis; D75.89 Other specified diseases of blood and blood-forming organs; K70.9 Alcoholic liver disease, unspecified; D47.3 Essential (hemorrhagic) thrombocythemia; A04.72 Enterocolitis due to Clostridium difficile, not specified as recurrent; I11.0 Hypertensive heart disease with heart failure; I50.32 Chronic diastolic (congestive) heart failure; K21.9 Gastro-esophageal reflux disease without esophagitis; I34.0 Nonrheumatic mitral (valve) insufficiency; I27.20 Pulmonary hypertension, unspecified; J44.0 Chronic obstructive pulmonary disease with (acute) lower respiratory infection; E78.5 Hyperlipidemia, unspecified; M81.0 Age-related osteoporosis without current pathological fracture; J15.9 Unspecified bacterial pneumonia; F10.10 Alcohol abuse, uncomplicated; F17.200 Nicotine dependence, unspecified, uncomplicated; Z91.19 Patient's noncompliance with other medical treatment and regimen; Z95.0 Presence of cardiac pacemaker; W10.9XXA Fall (on) (from) unspecified stairs and steps, initial encounter; Y93.89 Activity, other specified
CPT/HCPCS: 36415; 71046; 72110; 74177; 80048; 80076; 82040; 83605; 85025; 87040; 93005; 96365; 96366; 96367; 96372; 96375; 96376; 97163; 99284; G0378; J0456; J0696; J1650; J1885; J2270; J2405; J3370; J7050; Q9967

== ENCOUNTER 2019-01-08 19:56 | Emergency (ER) | payer MEDICAID ==
[~2019-01-08] VITALS: Ht 170.2 cm; Wt 62.0 kg
[2019-01-08 19:58] VITALS: BP 140/92
== END 2019-01-08 21:46 | disposition home or self-care (01) ==
LOC: ED 21:41
DX: M25.511 Pain in right shoulder (principal); M79.621 Pain in right upper arm; M79.671 Pain in right foot; F10.10 Alcohol abuse, uncomplicated; E78.5 Hyperlipidemia, unspecified; J44.9 Chronic obstructive pulmonary disease, unspecified; I50.9 Heart failure, unspecified; I11.0 Hypertensive heart disease with heart failure
CPT/HCPCS: 29105; 71101; 73000; 73060; 73630; 96372; 99283; J1885

== ENCOUNTER 2019-03-25 14:57 | Inpatient (IN) | payer MEDICAID ==
[~2019-03-25] VITALS: Ht 170.2 cm; Wt 83.7 kg
[~2019-03-25 14:57] MED LIST changes: +AZIT500T10 PO; -AZIT500T5 PO
--- NOTE | 2019-03-25 15:48 | NUR ---
ASSOCIATE CHEMIST: PT NOT ABLE TO STAND FOR A WEIGHT IN TRIAGE
--- NOTE | 2019-03-25 16:12 | NUR ---
APRON OPERATOR: PT TO ROOM FROM LOBBY
--- NOTE | 2019-03-25 16:30 | NUR ---
PRESENT WITH WORSENING OF LOWER BACK PAIN/BILATERAL LOWER EXTREMITY WEAKNESS. KNOW WITH URINARY URGENCY (UNABLE TO MAKE IT TO TOILET LEGS TOO WEAK.) NO FOCAL DEFICITS. ABLE TO WALK TO RESTROOM FOR UA. REPORTS RECENT HOSPITALIZATION IN [place] FOR SAME WELL ETOH DETOX
[2019-03-25 17:26] LABS: MICROSCOPIC INDICATED
--- NOTE | 2019-03-25 17:46 | NUR ---
piv placed, provider asked for orders
[2019-03-25] MEDS ORDERED: MORPHINE SULFATE 4 MG/ML, 1ML IVPush PRN (18:30)
[2019-03-25] MEDS ORDERED: SODIUM CHLORIDE FLUSH 10ML SYR IVF ONE (18:30)
[2019-03-25] MEDS ORDERED: KETOROLAC 30 MG/1 ML IVPush ONE (18:30)
[2019-03-25] MEDS ORDERED: KETOROLAC 30 MG/1 ML ONE (18:52)
[2019-03-25] MEDS ORDERED: MORPHINE SULFATE 4 MG/ML, 1ML ONE (18:53)
[2019-03-25 19:07] LABS: ALANINE AMINOTRANSFERASE 40 U/L (12-78); ALBUMIN 3.4 g/dL (3.4-5.0); ANION GAP 8 mmol/L (5-15); CALCIUM 8.2 mg/dL (8.5-10.1); CHLORIDE 102 mmol/L (98-107)
[2019-03-25 19:10] LABS: ALKALINE PHOSPHATASE 213 U/L (45-117); BILIRUBIN,TOTAL 0.8 mg/dL (0.2-1.0); CREATININE 0.84 mg/dL (0.55-1.02)
--- NOTE | 2019-03-25 19:10 | NUR ---
MEDICATED PER EMAR MORPHINE DEFERRED AFTER DISCUSIION WITH ER PROVIDER. PATIENT DEMANDING NARCOTICS. EARLIER PATIENT WALKING DOWN THE MCNEIL. PATIENT OVERHEARD YELLING "WHERE IS MY NURSE. I NEED MY DAHM NARCOTICS."
[2019-03-25] MEDS ORDERED: OMNIPAQUE 350 MG/ML, 100ML BOTTLE ONE (19:58)
--- NOTE | 2019-03-25 20:08 | NUR ---
Pain improved to 1/10. resting comfortably in bed awaiting testing results
--- NOTE | 2019-03-25 22:00 | NUR ---
PATIENT DEEPLY ASLEEP. VSS ON SILK CREPE MACHINE OPERATOR
[2019-03-26] MEDS ORDERED: ENOXAPARIN 40 MG/0.4 ML SQ SCH
[2019-03-26] MEDS ORDERED: ONDANSETRON ODT 4 MG PO PRN
[2019-03-26] MEDS ORDERED: LORazepam 1MG TABLET PO PRN ×4 (00:30)
[2019-03-26] MEDS ORDERED: POTASSIUM CHLORIDE 20 MEQ TAB.ER.PRT PO ONE (00:30)
[2019-03-26] MEDS ORDERED: LORazepam 0.5MG TABLET PO PRN (00:30)
[2019-03-26] MEDS: NICOTINE 7 MG/24 HR PATCH.TD24 TD SCH ×2 (01:14→23:44)
[2019-03-26] MEDS: KETOROLAC 30 MG/1 ML IV PRN ×3 (01:14→22:08)
[2019-03-26 01:19] VITALS: BP 135/84
[2019-03-26 01:31] LABS: BASOPHILS % (AUTO) 2 % (0-1); EOSINOPHILS # (AUTO) 0.36 x10^3/uL (0-0.4); EOSINOPHILS % (AUTO) 8 % (1-7); LYMPHOCYTES # (AUTO) 1.57 x10^3/uL (1-3.4); LYMPHOCYTES % (AUTO) 33 % (22-44); MD NO; MEAN CORPUSCULAR HEMOGLOBIN 34.8 pg (27.0-34.8); MEAN CORPUSCULAR HGB CONC 33.2 g/dL (32.4-35.8); MEAN CORPUSCULAR VOLUME 104.9 fL (80-100); MEAN PLATELET VOLUME 7.7 fL (7.4-10.4); MONOCYTES # (AUTO) 0.79 x10^3/uL (0.2-0.8); MONOCYTES % (AUTO) 17 % (2-9); NEUTROPHILS # (AUTO) 1.94 x10^3/uL (1.8-6.8); NEUTROPHILS % (AUTO) 41 % (42-75); PLATELET COUNT 336 x10^3/uL (130-400); RED BLOOD COUNT 3.13 x10^6/uL (3.82-5.3)
[2019-03-26 04:11] VITALS: BP 155/94
[2019-03-26] MEDS: METHOCARBAMOL 500 MG TABLET PO PRN ×3 (04:12→22:15)
[2019-03-26 07:51] VITALS: BP 162/81
[2019-03-26] MEDS: HEPARIN 5,000 UNITS/ML, 1ML SQ SCH ×3 (08:00→23:25)
[2019-03-26] MEDS: THIAMINE 100MG TABLET PO SCH (08:16)
[2019-03-26] MEDS: FOLIC ACID 1 MG TABLET PO SCH (08:16)
[2019-03-26] MEDS: LIDODERM 5% PATCH TD PRN (11:49)
[2019-03-26] MEDS: CARVEDILOL 25 MG TABLET PO SCH (17:24)
[2019-03-26 20:44] VITALS: BP 165/105
[2019-03-26] MEDS ORDERED: OXYcodone IR 5MG TABLET PO PRN (21:30)
[2019-03-26] MEDS: ATORVASTATIN 40 MG TABLET PO SCH (22:07)
[2019-03-26] MEDS: ACETAMINOPHEN 325 MG TABLET PO PRN (22:07)
[2019-03-26] MEDS: LORazepam 1MG TABLET PO PRN (22:07)
[2019-03-26] MEDS: GABAPENTIN 300 MG CAPSULE PO PRN (22:07)
[2019-03-26] MEDS: OXYcodone IR 5MG TABLET PO PRN (22:08)
[2019-03-26] MEDS: hydrALAzine 20 MG/ML, 1ML IVPush PRN (22:10)
[2019-03-27 02:53] VITALS: BP 142/94
[2019-03-27 05:38] LABS: BASOPHILS # (AUTO) 0.07 x10^3/uL (0-0.1); BASOPHILS % (AUTO) 2 % (0-1); EOSINOPHILS # (AUTO) 0.37 x10^3/uL (0-0.4); EOSINOPHILS % (AUTO) 8 % (1-7); LYMPHOCYTES # (AUTO) 1.23 x10^3/uL (1-3.4); LYMPHOCYTES % (AUTO) 28 % (22-44); MD NO; MEAN CORPUSCULAR HEMOGLOBIN 35.6 pg (27.0-34.8); MEAN CORPUSCULAR HGB CONC 33.3 g/dL (32.4-35.8); MEAN PLATELET VOLUME 8.1 fL (7.4-10.4); MONOCYTES # (AUTO) 0.67 x10^3/uL (0.2-0.8); MONOCYTES % (AUTO) 15 % (2-9); NEUTROPHILS # (AUTO) 2.06 x10^3/uL (1.8-6.8); NEUTROPHILS % (AUTO) 47 % (42-75); PLATELET COUNT 310 x10^3/uL (130-400); RED BLOOD COUNT 2.97 x10^6/uL (3.82-5.3); RED CELL DISTRIBUTION WIDTH 16.3 % (9.6-15.2)
[2019-03-27 05:49] LABS: CHLORIDE 104 mmol/L (98-107)
[2019-03-27 05:59] LABS: ALANINE AMINOTRANSFERASE 33 U/L (12-78); ALBUMIN 3.2 g/dL (3.4-5.0); ALKALINE PHOSPHATASE 184 U/L (45-117); ANION GAP 6 mmol/L (5-15); BILIRUBIN,TOTAL 0.9 mg/dL (0.2-1.0); CALCIUM 8.4 mg/dL (8.5-10.1); CREATININE 0.76 mg/dL (0.55-1.02); TOTAL PROTEIN 6.8 g/dL (6.4-8.2)
[2019-03-27] MEDS: LORazepam 1MG TABLET PO PRN (07:04)
[2019-03-27] MEDS: OXYcodone IR 5MG TABLET PO PRN ×2 (07:04→13:44)
[2019-03-27 08:28] VITALS: BP 172/111
[2019-03-27] MEDS: FOLIC ACID 1 MG TABLET PO SCH (09:02)
[2019-03-27] MEDS: THIAMINE 100MG TABLET PO SCH (09:02)
[2019-03-27] MEDS: LOSARTAN 25MG TABLET PO SCH (09:02)
[2019-03-27] MEDS: CARVEDILOL 25 MG TABLET PO SCH ×2 (09:02→17:54)
[2019-03-27] MEDS: ACETAMINOPHEN 325 MG TABLET PO PRN ×2 (09:18→17:53)
[2019-03-27] MEDS: KETOROLAC 30 MG/1 ML IV PRN ×2 (09:18→21:07)
[2019-03-27] MEDS: HEPARIN 5,000 UNITS/ML, 1ML SQ SCH ×2 (09:18→17:54)
[2019-03-27] MEDS: LIDODERM 5% PATCH TD PRN (11:45)
[2019-03-27] MEDS: METHOCARBAMOL 500 MG TABLET PO PRN (11:46)
[2019-03-27] MEDS: GABAPENTIN 300 MG CAPSULE PO PRN (11:46)
[2019-03-27] MEDS ORDERED: LORazepam 2 MG/ML, 1ML IV PRN ×5 (12:30)
[2019-03-27] MEDS ORDERED: LORazepam 1MG TABLET PO PRN ×2 (12:30)
[2019-03-27 13:32] VITALS: BP 177/110
[2019-03-27 13:51] VITALS: BP 169/105
[2019-03-27] MEDS: LORazepam 0.5MG TABLET PO PRN (13:51)
[2019-03-27] MEDS: hydrALAzine 20 MG/ML, 1ML IVPush PRN (13:59)
[2019-03-27 15:56] VITALS: BP 152/96
[2019-03-27 18:44] VITALS: BP 151/83
[2019-03-27] MEDS: ATORVASTATIN 40 MG TABLET PO SCH (21:00)
[2019-03-27] MEDS: LIDODERM REMOVE PATCH NOTE XX SCH (23:45)
[2019-03-28] MEDS: HEPARIN 5,000 UNITS/ML, 1ML SQ SCH ×3 (00:26→16:33)
[2019-03-28] MEDS: NICOTINE 7 MG/24 HR PATCH.TD24 TD SCH ×2 (00:26→20:50)
[2019-03-28 03:17] VITALS: BP 124/75
[2019-03-28] MEDS: LORazepam 1MG TABLET PO PRN ×4 (03:46→23:47)
[2019-03-28] MEDS: KETOROLAC 30 MG/1 ML IV PRN ×3 (03:46→17:35)
[2019-03-28 05:58] LABS: BASOPHILS # (AUTO) 0.07 x10^3/uL (0-0.1); BASOPHILS % (AUTO) 2 % (0-1); EOSINOPHILS # (AUTO) 0.29 x10^3/uL (0-0.4); EOSINOPHILS % (AUTO) 7 % (1-7); LYMPHOCYTES % (AUTO) 28 % (22-44); MD NO; MEAN CORPUSCULAR HEMOGLOBIN 35.6 pg (27.0-34.8); MEAN CORPUSCULAR HGB CONC 33.4 g/dL (32.4-35.8); MEAN CORPUSCULAR VOLUME 106.5 fL (80-100); MEAN PLATELET VOLUME 8.2 fL (7.4-10.4); MONOCYTES # (AUTO) 0.43 x10^3/uL (0.2-0.8); MONOCYTES % (AUTO) 10 % (2-9); NEUTROPHILS # (AUTO) 2.27 x10^3/uL (1.8-6.8); NEUTROPHILS % (AUTO) 53 % (42-75); PLATELET COUNT 310 x10^3/uL (130-400); RED BLOOD COUNT 3.18 x10^6/uL (3.82-5.3); RED CELL DISTRIBUTION WIDTH 15.8 % (9.6-15.2)
[2019-03-28 06:09] LABS: ANION GAP 6 mmol/L (5-15); CALCIUM 8.8 mg/dL (8.5-10.1); CHLORIDE 101 mmol/L (98-107); CREATININE 0.75 mg/dL (0.55-1.02)
[2019-03-28 06:49] VITALS: BP 150/94
[2019-03-28] MEDS: FOLIC ACID 1 MG TABLET PO SCH (08:32)
[2019-03-28] MEDS: LOSARTAN 25MG TABLET PO SCH (08:32)
[2019-03-28] MEDS: CARVEDILOL 25 MG TABLET PO SCH ×2 (08:32→16:33)
[2019-03-28] MEDS: METHOCARBAMOL 500 MG TABLET PO PRN ×2 (08:45→20:50)
[2019-03-28] MEDS: THIAMINE 100MG TABLET PO SCH (08:45)
[2019-03-28 10:16] LABS: CLOSTRIDIUM DIFFICILE ANTIGEN NEGATIVE; CLOSTRIDIUM DIFFICILE TOXIN NEGATIVE (Negative)
[2019-03-28] MEDS: LIDODERM REMOVE PATCH NOTE XX SCH (11:45)
[2019-03-28] MEDS: OXYcodone IR 5MG TABLET PO PRN (12:34)
[2019-03-28 12:53] VITALS: BP 171/96
[2019-03-28] MEDS ORDERED: FLU VACC QS2019-20 36MOS UP/PF 0.5 ML IM ONE (16:00)
[2019-03-28 19:32] VITALS: BP 115/74
[2019-03-28] MEDS: ATORVASTATIN 40 MG TABLET PO SCH (20:39)
[2019-03-28] MEDS: LIDODERM 5% PATCH TD PRN (20:52)
[2019-03-29 01:58] VITALS: BP 127/76
[2019-03-29] MEDS: HEPARIN 5,000 UNITS/ML, 1ML SQ SCH ×3 (05:22→20:36)
[2019-03-29] MEDS: METHOCARBAMOL 500 MG TABLET PO PRN ×2 (05:22→22:12)
[2019-03-29] MEDS: LORazepam 1MG TABLET PO PRN ×2 (05:22→20:36)
[2019-03-29] MEDS: KETOROLAC 30 MG/1 ML IV PRN ×2 (05:22→11:29)
[2019-03-29 07:54] VITALS: BP 141/96
[2019-03-29] MEDS: LOSARTAN 25MG TABLET PO SCH (08:21)
[2019-03-29] MEDS: THIAMINE 100MG TABLET PO SCH (08:21)
[2019-03-29] MEDS: FOLIC ACID 1 MG TABLET PO SCH (08:21)
[2019-03-29] MEDS: CARVEDILOL 25 MG TABLET PO SCH ×2 (08:21→17:52)
[2019-03-29] MEDS: OXYcodone IR 5MG TABLET PO PRN ×4 (08:45→22:13)
[2019-03-29] MEDS: LIDODERM REMOVE PATCH NOTE XX SCH ×2 (08:50→20:37)
[2019-03-29] MEDS: LORazepam 0.5MG TABLET PO PRN ×4 (11:29→17:53)
[2019-03-29 14:30] VITALS: BP 148/92
[2019-03-29] MEDS ORDERED: LIDOCAINE-MPF 1%, 5ML ONE (15:02)
[2019-03-29] MEDS ORDERED: OMNIPAQUE 300 MG/ML, 10ML VIAL ONE (16:16)
[2019-03-29 19:20] VITALS: BP 155/93
[2019-03-29] MEDS: NICOTINE 7 MG/24 HR PATCH.TD24 TD SCH (20:36)
[2019-03-29] MEDS: ATORVASTATIN 40 MG TABLET PO SCH (20:36)
[2019-03-29] MEDS: ACETAMINOPHEN 325 MG TABLET PO PRN (21:07)
[2019-03-30 01:20] VITALS: BP 122/88
[2019-03-30] MEDS: HEPARIN 5,000 UNITS/ML, 1ML SQ SCH ×3 (05:13→20:48)
[2019-03-30 05:25] LABS: BASOPHILS # (AUTO) 0.09 x10^3/uL (0-0.1); BASOPHILS % (AUTO) 2 % (0-1); EOSINOPHILS % (AUTO) 10 % (1-7); LYMPHOCYTES # (AUTO) 1.07 x10^3/uL (1-3.4); LYMPHOCYTES % (AUTO) 27 % (22-44); MD NO; MEAN CORPUSCULAR HEMOGLOBIN 36.2 pg (27.0-34.8); MEAN CORPUSCULAR HGB CONC 34.2 g/dL (32.4-35.8); MEAN CORPUSCULAR VOLUME 105.8 fL (80-100); MEAN PLATELET VOLUME 8.2 fL (7.4-10.4); MONOCYTES # (AUTO) 0.71 x10^3/uL (0.2-0.8); MONOCYTES % (AUTO) 18 % (2-9); NEUTROPHILS # (AUTO) 1.73 x10^3/uL (1.8-6.8); NEUTROPHILS % (AUTO) 43 % (42-75); PLATELET COUNT 310 x10^3/uL (130-400); RED BLOOD COUNT 2.98 x10^6/uL (3.82-5.3); RED CELL DISTRIBUTION WIDTH 15.4 % (9.6-15.2)
[2019-03-30 05:48] LABS: CHLORIDE 95 mmol/L (98-107)
[2019-03-30] MEDS: LORazepam 1MG TABLET PO PRN ×4 (05:49→20:48)
[2019-03-30] MEDS: OXYcodone IR 5MG TABLET PO PRN ×3 (05:50→20:48)
[2019-03-30 05:54] LABS: ANION GAP 9 mmol/L (5-15); CALCIUM 8.1 mg/dL (8.5-10.1); CREATININE 0.85 mg/dL (0.55-1.02)
[2019-03-30 06:58] VITALS: BP 167/102
[2019-03-30] MEDS: THIAMINE 100MG TABLET PO SCH (08:14)
[2019-03-30] MEDS: FOLIC ACID 1 MG TABLET PO SCH (08:14)
[2019-03-30] MEDS: LOSARTAN 25MG TABLET PO SCH (08:14)
[2019-03-30] MEDS: CARVEDILOL 25 MG TABLET PO SCH ×2 (08:14→17:43)
[2019-03-30] MEDS: LIDODERM REMOVE PATCH NOTE XX SCH ×2 (09:00→20:51)
[2019-03-30 14:07] VITALS: BP 153/96
[2019-03-30 16:55] LABS: SODIUM,URINE RANDOM 50 mmol/L
[2019-03-30 17:32] LABS: OSMOLALITY,URINE 249 mOsm/kg (500-850)
[2019-03-30] MEDS: METHOCARBAMOL 500 MG TABLET PO PRN (18:26)
[2019-03-30 19:50] VITALS: BP 130/82
[2019-03-30] MEDS: ATORVASTATIN 40 MG TABLET PO SCH (20:48)
[2019-03-30] MEDS: NICOTINE 7 MG/24 HR PATCH.TD24 TD SCH (20:51)
[2019-03-31 02:37] VITALS: BP 134/90
[2019-03-31] MEDS: OXYcodone IR 5MG TABLET PO PRN ×4 (03:04→20:38)
[2019-03-31] MEDS: HEPARIN 5,000 UNITS/ML, 1ML SQ SCH ×2 (04:58→13:00)
[2019-03-31 07:47] VITALS: BP 114/68
[2019-03-31 08:17] LABS: ANION GAP 4 mmol/L (5-15); CALCIUM 9.2 mg/dL (8.5-10.1); CHLORIDE 97 mmol/L (98-107)
[2019-03-31 08:19] LABS: MEAN CORPUSCULAR HEMOGLOBIN 35.4 pg (27.0-34.8); MEAN CORPUSCULAR HGB CONC 33.4 g/dL (32.4-35.8); MEAN CORPUSCULAR VOLUME 106.1 fL (80-100); MEAN PLATELET VOLUME 8.5 fL (7.4-10.4); PLATELET COUNT 353 x10^3/uL (130-400); RED BLOOD COUNT 3.25 x10^6/uL (3.82-5.3); RED CELL DISTRIBUTION WIDTH 15.1 % (9.6-15.2)
[2019-03-31] MEDS: LOSARTAN 25MG TABLET PO SCH (08:31)
[2019-03-31] MEDS: CARVEDILOL 25 MG TABLET PO SCH ×2 (08:31→16:22)
[2019-03-31] MEDS: FOLIC ACID 1 MG TABLET PO SCH (08:32)
[2019-03-31] MEDS: METHOCARBAMOL 500 MG TABLET PO PRN (08:32)
[2019-03-31] MEDS: THIAMINE 100MG TABLET PO SCH (08:32)
[2019-03-31] MEDS: LIDODERM REMOVE PATCH NOTE XX SCH ×2 (08:33→20:36)
[2019-03-31 08:43] LABS: BASOPHILS # (AUTO) 0.07 x10^3/uL (0-0.1); BASOPHILS % (AUTO) 1 % (0-1); EOSINOPHILS # (AUTO) 0.49 x10^3/uL (0-0.4); EOSINOPHILS % (AUTO) 10 % (1-7); LYMPHOCYTES # (AUTO) 1.28 x10^3/uL (1-3.4); LYMPHOCYTES % (AUTO) 26 % (22-44); MD SCAN; MONOCYTES # (AUTO) 0.74 x10^3/uL (0.2-0.8); MONOCYTES % (AUTO) 15 % (2-9); NEUTROPHILS # (AUTO) 2.34 x10^3/uL (1.8-6.8); NEUTROPHILS % (AUTO) 48 % (42-75)
[2019-03-31 10:58] LABS: INTERNATIONAL NORMALIZED RATIO 1.02 (0.93-1.1); PROTHROMBIN TIME 10.7 Seconds (9.6-11.5)
[2019-03-31] MEDS: LORazepam 1MG TABLET PO PRN (12:40)
[2019-03-31 13:14] VITALS: BP 115/71
[2019-03-31 19:29] VITALS: BP 102/71
[2019-03-31] MEDS: NICOTINE 7 MG/24 HR PATCH.TD24 TD SCH (20:37)
[2019-03-31] MEDS: LIDODERM 5% PATCH TD PRN (20:37)
[2019-03-31] MEDS: ATORVASTATIN 40 MG TABLET PO SCH (20:38)
[2019-04-01] MEDS: LORazepam 1MG TABLET PO PRN ×3 (00:03→23:48)
[2019-04-01] MEDS: METHOCARBAMOL 500 MG TABLET PO PRN ×2 (00:03→19:56)
[2019-04-01] MEDS: SODIUM CHLORIDE 0.9% 1,000 ML IV SCH ×3 (00:09→23:48)
[2019-04-01 00:45] VITALS: BP 144/85
[2019-04-01 04:50] LABS: BASOPHILS # (AUTO) 0.06 x10^3/uL (0-0.1); BASOPHILS % (AUTO) 1 % (0-1); EOSINOPHILS # (AUTO) 0.49 x10^3/uL (0-0.4); EOSINOPHILS % (AUTO) 10 % (1-7); LYMPHOCYTES # (AUTO) 1.34 x10^3/uL (1-3.4); LYMPHOCYTES % (AUTO) 28 % (22-44); MD NO; MEAN CORPUSCULAR HEMOGLOBIN 35.6 pg (27.0-34.8); MEAN CORPUSCULAR HGB CONC 33.5 g/dL (32.4-35.8); MEAN CORPUSCULAR VOLUME 106.3 fL (80-100); MEAN PLATELET VOLUME 8.3 fL (7.4-10.4); MONOCYTES # (AUTO) 0.87 x10^3/uL (0.2-0.8); MONOCYTES % (AUTO) 18 % (2-9); NEUTROPHILS # (AUTO) 1.99 x10^3/uL (1.8-6.8); NEUTROPHILS % (AUTO) 42 % (42-75); PLATELET COUNT 306 x10^3/uL (130-400); RED BLOOD COUNT 3.19 x10^6/uL (3.82-5.3); RED CELL DISTRIBUTION WIDTH 15.3 % (9.6-15.2)
[2019-04-01 04:54] LABS: ANION GAP 6 mmol/L (5-15); CALCIUM 8.9 mg/dL (8.5-10.1); CHLORIDE 100 mmol/L (98-107)
[2019-04-01 04:57] LABS: CREATININE 0.71 mg/dL (0.55-1.02)
[2019-04-01] MEDS: OXYcodone IR 5MG TABLET PO PRN (06:30)
[2019-04-01] MEDS: CARVEDILOL 25 MG TABLET PO SCH ×2 (08:00→18:18)
[2019-04-01 08:02] VITALS: BP 146/89
[2019-04-01] MEDS ORDERED: BUPIVACAINE/PF 0.5% ONE (08:22)
[2019-04-01] MEDS ORDERED: THROMBIN 5,000 UNIT VIAL TP ONE ×2 (08:22→14:18)
[2019-04-01] MEDS ORDERED: EPINEPHRINE 1 MG/ML, 1ML ONE (08:22)
[2019-04-01] MEDS ORDERED: BACITRACIN 50,000 UNIT ONE (08:22)
[2019-04-01] MEDS: LIDODERM REMOVE PATCH NOTE XX SCH ×2 (09:00→21:00)
[2019-04-01] MEDS: FOLIC ACID 1 MG TABLET PO SCH (09:00)
[2019-04-01] MEDS: THIAMINE 100MG TABLET PO SCH (09:00)
[2019-04-01] MEDS: LOSARTAN 25MG TABLET PO SCH (09:00)
[2019-04-01] MEDS ORDERED: FENTANYL PF 250 MCG/5ML ONE (11:22)
[2019-04-01] MEDS ORDERED: MIDAZOLAM 1 MG/ML, 2ML ONE (11:22)
[2019-04-01] MEDS ORDERED: GABAPENTIN 300 MG CAPSULE PO ONE (12:00)
[2019-04-01] MEDS ORDERED: ACETAMINOPHEN 500 MG TABLET PO ONE (12:00)
[2019-04-01] MEDS ORDERED: PROPOFOL 50 ML ONE ×3 (12:13→14:56)
[2019-04-01] MEDS ORDERED: OXYcodone 5 MG/5 ML ORAL.SOL UDC PO PRN (12:30)
[2019-04-01] MEDS ORDERED: MEPERIDINE/PF 25MG/ML,1ML IVPush PRN (12:30)
[2019-04-01] MEDS ORDERED: FENTANYL PF 100 MCG/2ML IV PRN (12:30)
[2019-04-01] MEDS ORDERED: HALOPERIDOL 5 MG/ML IV PRN (12:30)
[2019-04-01] MEDS ORDERED: LABETALOL 5MG/ML, 20ML IV PRN (12:30)
[2019-04-01] MEDS ORDERED: PROMETHAZINE 25 MG/ML, 1ML IV PRN (12:30)
[2019-04-01] MEDS ORDERED: hydrALAzine 20 MG/ML, 1ML IV PRN (12:30)
[2019-04-01] MEDS ORDERED: CLINDAMYCIN 150 MG/ML, 6ML ONE (12:44)
[2019-04-01] MEDS ORDERED: FENTANYL PF 100 MCG/2ML ONE ×2 (14:56→17:28)
[2019-04-01] MEDS ORDERED: CEFAZOLIN 1,000 MG ONE (16:15)
[2019-04-01] MEDS ORDERED: DEXAMETHASONE 4 MG/ML, 1ML ONE (16:15)
[2019-04-01] MEDS ORDERED: GLYCOPYRROLATE 0.2MG/1ML, 5ML ONE (16:15)
[2019-04-01] MEDS ORDERED: ONDANSETRON 2MG/ML, 2ML ONE (16:15)
[2019-04-01] MEDS ORDERED: SUCCINYLCHOLINE 20 MG/ML, 10ML ONE (16:15)
[2019-04-01] MEDS ORDERED: NEOSTIGMINE 1 MG/ML, 10ML ONE (16:15)
[2019-04-01] MEDS ORDERED: PROPOFOL 10 MG/ML, 20ML ONE (16:15)
[2019-04-01] MEDS ORDERED: ROCURONIUM 10MG/ML,5ML ONE (16:15)
[2019-04-01] MEDS ORDERED: PHARMACY MAY ADJ FOR RENAL FX MC PRN (16:30)
[2019-04-01] MEDS ORDERED: HEPARIN 5,000 UNITS/ML, 1ML SQ SCH (16:30)
[2019-04-01] MEDS ORDERED: HYDROmorphone 1 MG/ML, 1ML INJ IVPush PRN (16:30)
[2019-04-01] MEDS: NS + 20MEQ KCL 1,000 ML IV SCH ×2 (16:30→23:21)
[2019-04-01] MEDS ORDERED: HYDROmorphone 1 MG/ML, 1ML VIAL ONE (16:49)
[2019-04-01] MEDS ORDERED: OXYcodone 5 MG/5 ML ORAL.SOL UDC ONE (16:49)
[2019-04-01] MEDS: HYDROmorphone 2 MG/ML, 1ML IVPush PRN ×2 (16:54→17:04)
[2019-04-01] MEDS ORDERED: LORazepam 2 MG/ML, 1ML ONE (17:18)
[2019-04-01] MEDS ORDERED: LORazepam 2 MG/ML, 1ML IVPush PRN (17:30)
[2019-04-01] MEDS: FENTANYL PF 100 MCG/2ML IV PRN ×2 (17:33→17:39)
[2019-04-01 18:44] VITALS: BP 116/84
[2019-04-01] MEDS: LORazepam 0.5MG TABLET PO PRN (19:56)
[2019-04-01] MEDS: HYDROcodone/APAP 5/325 TABLET PO PRN ×2 (19:56→23:48)
[2019-04-01] MEDS: ATORVASTATIN 40 MG TABLET PO SCH (21:21)
[2019-04-01] MEDS: NICOTINE 7 MG/24 HR PATCH.TD24 TD SCH (21:24)
[2019-04-01] MEDS: GABAPENTIN 300 MG CAPSULE PO PRN (23:49)
[2019-04-02 00:44] VITALS: BP 124/85
[2019-04-02] MEDS: OXYcodone IR 5MG TABLET PO PRN ×5 (02:34→22:42)
[2019-04-02 03:52] VITALS: BP 108/67
[2019-04-02 05:07] LABS: ANION GAP 8 mmol/L (5-15); CHLORIDE 100 mmol/L (98-107); CREATININE 1.01 mg/dL (0.55-1.02)
[2019-04-02 05:09] LABS: BASOPHILS # (AUTO) 0.02 x10^3/uL (0-0.1); BASOPHILS % (AUTO) 0 % (0-1); EOSINOPHILS % (AUTO) 0 % (1-7); LYMPHOCYTES # (AUTO) 0.66 x10^3/uL (1-3.4); LYMPHOCYTES % (AUTO) 6 % (22-44); MD NO; MEAN CORPUSCULAR HEMOGLOBIN 36.4 pg (27.0-34.8); MEAN CORPUSCULAR VOLUME 106.9 fL (80-100); MEAN PLATELET VOLUME 9.1 fL (7.4-10.4); MONOCYTES # (AUTO) 0.66 x10^3/uL (0.2-0.8); MONOCYTES % (AUTO) 6 % (2-9); NEUTROPHILS % (AUTO) 87 % (42-75); PLATELET COUNT 267 x10^3/uL (130-400); RED BLOOD COUNT 2.38 x10^6/uL (3.82-5.3); RED CELL DISTRIBUTION WIDTH 14.5 % (9.6-15.2)
[2019-04-02 06:54] VITALS: BP 130/82
[2019-04-02] MEDS: NS + 20MEQ KCL 1,000 ML IV SCH (07:33)
[2019-04-02] MEDS: THIAMINE 100MG TABLET PO SCH (07:43)
[2019-04-02] MEDS: LOSARTAN 25MG TABLET PO SCH (07:43)
[2019-04-02] MEDS: FOLIC ACID 1 MG TABLET PO SCH (07:43)
[2019-04-02] MEDS: CARVEDILOL 25 MG TABLET PO SCH ×2 (07:43→17:49)
[2019-04-02] MEDS: METHOCARBAMOL 500 MG TABLET PO PRN ×2 (08:52→19:24)
[2019-04-02] MEDS: GABAPENTIN 300 MG CAPSULE PO PRN ×2 (08:52→21:09)
[2019-04-02] MEDS: LIDODERM REMOVE PATCH NOTE XX SCH ×2 (09:00→21:00)
[2019-04-02] MEDS: SODIUM CHLORIDE 0.9% 1,000 ML IV SCH (11:22)
[2019-04-02 12:38] VITALS: BP 120/63
[2019-04-02 17:49] VITALS: BP 119/79
[2019-04-02 18:08] LABS: AMPHETAMINE SCREEN, URINE Negative (Negative); BARBITURATE SCREEN, URINE Negative (Negative); BENZODIAZEPINE SCREEN, URINE Positive (Negative); CANNABINOID SCREEN, URINE Positive (Negative); COCAINE SCREEN, URINE Negative (Negative); METHADONE SCREEN, URINE Negative (Negative); OPIATE SCREEN, URINE Positive (Negative)
[2019-04-02 19:25] VITALS: BP 109/70
[2019-04-02] MEDS: ATORVASTATIN 40 MG TABLET PO SCH (21:09)
[2019-04-02] MEDS: NICOTINE 7 MG/24 HR PATCH.TD24 TD SCH (21:13)
[2019-04-02] MEDS: HEPARIN 5,000 UNITS/ML, 1ML SQ SCH (21:13)
[2019-04-03] VITALS (7 sets, daily range): BP systolic 73–111; BP diastolic 49–70
[2019-04-03] MEDS: OXYcodone IR 5MG TABLET PO PRN ×4 (04:51→18:25)
[2019-04-03] MEDS: METHOCARBAMOL 500 MG TABLET PO PRN ×2 (04:51→14:32)
[2019-04-03] MEDS: HEPARIN 5,000 UNITS/ML, 1ML SQ SCH ×3 (06:00→22:51)
[2019-04-03 07:05] LABS: BASOPHILS # (AUTO) 0.04 x10^3/uL (0-0.1); BASOPHILS % (AUTO) 1 % (0-1); EOSINOPHILS # (AUTO) 0.12 x10^3/uL (0-0.4); EOSINOPHILS % (AUTO) 2 % (1-7); LYMPHOCYTES % (AUTO) 15 % (22-44); MD NO; MEAN CORPUSCULAR HEMOGLOBIN 34.9 pg (27.0-34.8); MEAN CORPUSCULAR VOLUME 105.7 fL (80-100); MONOCYTES # (AUTO) 1.27 x10^3/uL (0.2-0.8); MONOCYTES % (AUTO) 16 % (2-9); NEUTROPHILS # (AUTO) 5.14 x10^3/uL (1.8-6.8); NEUTROPHILS % (AUTO) 66 % (42-75); PLATELET COUNT 268 x10^3/uL (130-400); RED BLOOD COUNT 2.44 x10^6/uL (3.82-5.3); RED CELL DISTRIBUTION WIDTH 14.8 % (9.6-15.2)
[2019-04-03 07:10] LABS: ANION GAP 8 mmol/L (5-15); CALCIUM 8.2 mg/dL (8.5-10.1); CHLORIDE 98 mmol/L (98-107); CREATININE 0.85 mg/dL (0.55-1.02)
[2019-04-03] MEDS: CARVEDILOL 25 MG TABLET PO SCH ×2 (08:00→17:00)
[2019-04-03] MEDS: LOSARTAN 25MG TABLET PO SCH (08:42)
[2019-04-03] MEDS: THIAMINE 100MG TABLET PO SCH (08:44)
[2019-04-03] MEDS: FOLIC ACID 1 MG TABLET PO SCH (08:44)
[2019-04-03] MEDS: GABAPENTIN 300 MG CAPSULE PO PRN ×2 (08:44→21:07)
[2019-04-03] MEDS: DOCUSATE 100 MG CAPSULE PO PRN (08:44)
[2019-04-03] MEDS: LIDODERM REMOVE PATCH NOTE XX SCH ×2 (09:00→20:19)
[2019-04-03] MEDS: ATORVASTATIN 40 MG TABLET PO SCH (21:07)
[2019-04-03] MEDS: SENNA/DOCUSATE TABLET PO PRN (21:07)
[2019-04-03] MEDS: NICOTINE 7 MG/24 HR PATCH.TD24 TD SCH (21:14)
[2019-04-04] MEDS: METHOCARBAMOL 750 MG TABLET PO SCH ×4 (00:05→23:31)
[2019-04-04 01:21] VITALS: BP 98/65
[2019-04-04] MEDS: OXYcodone IR 5MG TABLET PO PRN ×3 (06:27→20:36)
[2019-04-04] MEDS: HEPARIN 5,000 UNITS/ML, 1ML SQ SCH ×3 (06:27→22:56)
[2019-04-04 06:35] VITALS: BP 104/57
[2019-04-04] MEDS: CARVEDILOL 25 MG TABLET PO SCH ×2 (08:00→16:44)
[2019-04-04] MEDS: THIAMINE 100MG TABLET PO SCH (08:33)
[2019-04-04] MEDS: GABAPENTIN 300 MG CAPSULE PO PRN (08:33)
[2019-04-04] MEDS: FOLIC ACID 1 MG TABLET PO SCH (08:33)
[2019-04-04] MEDS: DOCUSATE 100 MG CAPSULE PO PRN (08:33)
[2019-04-04] MEDS: SENNA/DOCUSATE TABLET PO PRN (08:33)
[2019-04-04] MEDS: LOSARTAN 25MG TABLET PO SCH (08:35)
[2019-04-04] MEDS: LIDODERM REMOVE PATCH NOTE XX SCH ×2 (08:35→20:37)
[2019-04-04] MEDS ORDERED: MAGNESIUM HYDROXIDE 8%, 30ML UDC ONE (11:14)
[2019-04-04] MEDS ORDERED: POLYETHYLENE GLYCOL 17 GM PACKET ONE (11:14)
[2019-04-04] MEDS: POLYETHYLENE GLYCOL 17 GM PACKET PO SCH (11:18)
[2019-04-04] MEDS ORDERED: BISACODYL 10 MG SUPP PR PRN (11:30)
[2019-04-04] MEDS ORDERED: MAGNESIUM HYDROXIDE 8%, 30ML UDC PO PRN (11:30)
[2019-04-04 13:04] VITALS: BP 107/73
[2019-04-04 16:46] VITALS: BP 89/59
[2019-04-04] MEDS: NICOTINE 7 MG/24 HR PATCH.TD24 TD SCH (20:36)
[2019-04-04] MEDS: ATORVASTATIN 40 MG TABLET PO SCH (20:36)
[2019-04-04 21:37] VITALS: BP 87/51
[2019-04-05] MEDS: OXYcodone IR 5MG TABLET PO PRN ×5 (00:41→19:42)
[2019-04-05 02:38] VITALS: BP 107/68
[2019-04-05] MEDS: HEPARIN 5,000 UNITS/ML, 1ML SQ SCH ×3 (06:36→22:54)
[2019-04-05 06:41] VITALS: BP 114/72
[2019-04-05 07:57] VITALS: BP 104/84
[2019-04-05] MEDS: POLYETHYLENE GLYCOL 17 GM PACKET PO SCH (08:07)
[2019-04-05] MEDS: LIDODERM REMOVE PATCH NOTE XX SCH ×2 (08:07→21:00)
[2019-04-05] MEDS: METHOCARBAMOL 750 MG TABLET PO SCH ×2 (08:08→16:44)
[2019-04-05] MEDS: LOSARTAN 25MG TABLET PO SCH (08:08)
[2019-04-05] MEDS: FOLIC ACID 1 MG TABLET PO SCH (08:08)
[2019-04-05] MEDS: CARVEDILOL 25 MG TABLET PO SCH ×2 (08:08→16:44)
[2019-04-05] MEDS: THIAMINE 100MG TABLET PO SCH (08:09)
[2019-04-05 12:40] VITALS: BP 103/63
[2019-04-05 16:44] VITALS: BP 122/76
[2019-04-05 19:24] VITALS: BP 91/54
[2019-04-05] MEDS: NICOTINE 7 MG/24 HR PATCH.TD24 TD SCH (21:00)
[2019-04-05] MEDS: ATORVASTATIN 40 MG TABLET PO SCH (21:17)
[2019-04-06] MEDS: OXYcodone IR 5MG TABLET PO PRN ×3 (00:06→10:25)
[2019-04-06] MEDS: METHOCARBAMOL 750 MG TABLET PO SCH ×2 (00:06→08:48)
[2019-04-06 02:04] VITALS: BP 101/64
[2019-04-06] MEDS: LIDODERM 5% PATCH TD PRN (02:48)
[2019-04-06] MEDS: HEPARIN 5,000 UNITS/ML, 1ML SQ SCH (06:21)
[2019-04-06 06:36] VITALS: BP 105/66
[2019-04-06] MEDS ORDERED: PERM60CR17 TP (08:43)
[2019-04-06] MEDS: FOLIC ACID 1 MG TABLET PO SCH (08:48)
[2019-04-06] MEDS: CARVEDILOL 25 MG TABLET PO SCH (08:48)
[2019-04-06] MEDS: THIAMINE 100MG TABLET PO SCH (08:48)
[2019-04-06] MEDS: LOSARTAN 25MG TABLET PO SCH (08:48)
[2019-04-06] MEDS: POLYETHYLENE GLYCOL 17 GM PACKET PO SCH (08:48)
[2019-04-06] MEDS: LIDODERM REMOVE PATCH NOTE XX SCH (08:49)
[2019-04-06 12:00] VITALS: BP 101/63
[2019-04-06] MEDS ORDERED: METH750T2 PO (12:38)
[2019-04-06] MEDS ORDERED: HYDR-3240 PO (12:39)
[2019-04-06 13:05] VITALS: BP 102/64
== END 2019-04-06 13:35 | disposition home or self-care (01) | DRG 304 ==
LOC: ED 18:36 → 4NE 22:33 → 3N 03-26 17:14 → 4NE 04-01 17:52
PROVIDERS: ADMIT Internal Medicine; ATTEND Hospitalist
PROC: 0SG30AJ Fusion of Lumbosacral Joint with Interbody Fusion Device, Posterior Approach, Anterior Column, Open Approach (ICD-10-PCS; 2019-04-01)
PROC: 0SG3071 Fusion of Lumbosacral Joint with Autologous Tissue Substitute, Posterior Approach, Posterior Column, Open Approach (ICD-10-PCS; 2019-04-01)
PROC: 0SG0071 Fusion of Lumbar Vertebral Joint with Autologous Tissue Substitute, Posterior Approach, Posterior Column, Open Approach (ICD-10-PCS; 2019-04-01)
PROC: 0SB20ZZ Excision of Lumbar Vertebral Disc, Open Approach (ICD-10-PCS; 2019-04-01)
PROC: 0SB40ZZ Excision of Lumbosacral Disc, Open Approach (ICD-10-PCS; 2019-04-01)
PROC: 4A11X4G Monitoring of Peripheral Nervous Electrical Activity, Intraoperative, External Approach (ICD-10-PCS; 2019-04-01)
PROC: 01NB0ZZ Release Lumbar Nerve, Open Approach (ICD-10-PCS; 2019-04-01)
PROC: 01NR0ZZ Release Sacral Nerve, Open Approach (ICD-10-PCS; 2019-04-01)
PROC: 0SG00AJ Fusion of Lumbar Vertebral Joint with Interbody Fusion Device, Posterior Approach, Anterior Column, Open Approach (ICD-10-PCS; principal; 2019-04-01 12:00)
DX: M48.07 Spinal stenosis, lumbosacral region (principal); I27.20 Pulmonary hypertension, unspecified; E22.2 Syndrome of inappropriate secretion of antidiuretic hormone; I11.0 Hypertensive heart disease with heart failure; I50.32 Chronic diastolic (congestive) heart failure; I42.9 Cardiomyopathy, unspecified; E78.5 Hyperlipidemia, unspecified; E87.6 Hypokalemia; F10.239 Alcohol dependence with withdrawal, unspecified; F12.90 Cannabis use, unspecified, uncomplicated; F17.200 Nicotine dependence, unspecified, uncomplicated; J44.9 Chronic obstructive pulmonary disease, unspecified; K70.9 Alcoholic liver disease, unspecified; M81.0 Age-related osteoporosis without current pathological fracture; Z83.3 Family history of diabetes mellitus; Z82.49 Family history of ischemic heart disease and other diseases of the circulatory system; R32 Unspecified urinary incontinence; Z91.19 Patient's noncompliance with other medical treatment and regimen; Z95.0 Presence of cardiac pacemaker; M51.36 Other intervertebral disc degeneration, lumbar region; M51.37 Other intervertebral disc degeneration, lumbosacral region; M43.16 Spondylolisthesis, lumbar region; M48.061 Spinal stenosis, lumbar region without neurogenic claudication
CPT/HCPCS: S0020; S0077; 36415; 62284; 72100; 72110; 72126; 72132; 80048; 80053; 80307; 81001; 83605; 83930; 83935; 84300; 84439; 84443; 85025; 85610; 87324; 90686; 99285; C1713; G0378; J0171; J0690; J1100; J1170; J1644; J1885; J2250; J2405; J2704; J2710; J3010; J3480; Q9967; C1762; C1769; J0330; J0360; J2060; J7030

== ENCOUNTER 2019-07-24 13:00 | Inpatient (IN) | payer MEDICAID ==
[~2019-07-24] VITALS: Ht 170.2 cm; Wt 64.8 kg
[~2019-07-24 13:00] MED LIST changes: +HYDR-3240 PO; +METH750T2 PO; +PERM60CR17 TP
[2019-07-24] MEDS ORDERED: BISACODYL 10 MG SUPP PR PRN (13:30)
[2019-07-24] MEDS ORDERED: DOCUSATE 100 MG CAPSULE PO PRN (13:30)
[2019-07-24] MEDS ORDERED: ONDANSETRON ODT 4 MG PO PRN (13:30)
[2019-07-24] MEDS ORDERED: POLYETHYLENE GLYCOL 17 GM PACKET PO PRN (13:30)
[2019-07-24] MEDS ORDERED: BACL-19 PO (17:04)
[2019-07-24 17:05] VITALS: BP 126/89
[2019-07-24] MEDS: SERTRALINE 50MG TABLET PO SCH (17:38)
[2019-07-24] MEDS: ACETAMINOPHEN 325 MG TABLET PO PRN (17:38)
[2019-07-24] MEDS: LORazepam 1MG TABLET PO PRN ×2 (17:38→21:50)
[2019-07-24] MEDS: ACAMPROSATE 333 MG TABLET.DR PO SCH (21:10)
[2019-07-25 07:24] VITALS: BP 160/92
[2019-07-25 07:24] LABS: ANION GAP 5 mmol/L (5-15); CALCIUM 8.5 mg/dL (8.5-10.1); CHLORIDE 103 mmol/L (98-107); CHOLESTEROL, TOTAL 182 mg/dL (140-239)
[2019-07-25 07:33] LABS: MEAN CORPUSCULAR HEMOGLOBIN 33.5 pg (27.0-34.8); MEAN CORPUSCULAR VOLUME 98.5 fL (80-100); MEAN PLATELET VOLUME 7.7 fL (7.4-10.4); PLATELET COUNT 174 x10^3/uL (130-400); RED BLOOD COUNT 3.25 x10^6/uL (3.82-5.3); RED CELL DISTRIBUTION WIDTH 20.2 % (9.6-15.2)
[2019-07-25 07:50] LABS: CHOL/HDL RATIO 1.8; FREE T4 (FREE THYROXINE) 0.95 ng/dL (0.76-1.46); HDL CHOL % 54 % (28-40); HDL CHOLESTEROL (DIRECT) 99 mg/dL (40-60); LDL CHOLESTEROL,CALCULATED 66 mg/dL (54-169); LDL/HDL RATIO 0.7 (0.5-3.0); TRIGLYCERIDES 83 mg/dL (50-200); VLDL CHOLESTEROL 17 mg/dL (0-25)
[2019-07-25 08:09] LABS: BASOPHILS # (AUTO) 0.03 x10^3/uL (0-0.1); BASOPHILS % (AUTO) 1 % (0-1); EOSINOPHILS # (AUTO) 0.16 x10^3/uL (0-0.4); EOSINOPHILS % (AUTO) 4 % (1-7); LYMPHOCYTES # (AUTO) 0.97 x10^3/uL (1-3.4); LYMPHOCYTES % (AUTO) 25 % (22-44); MD SCAN; MONOCYTES # (AUTO) 0.47 x10^3/uL (0.2-0.8); MONOCYTES % (AUTO) 12 % (2-9); NEUTROPHILS # (AUTO) 2.33 x10^3/uL (1.8-6.8); NEUTROPHILS % (AUTO) 59 % (42-75)
[2019-07-25] MEDS: LIDODERM 5% PATCH TD SCH (09:06)
[2019-07-25] MEDS: SERTRALINE 50MG TABLET PO SCH (09:06)
[2019-07-25] MEDS: ACAMPROSATE 333 MG TABLET.DR PO SCH ×3 (09:06→21:03)
[2019-07-25] MEDS: LORazepam 1MG TABLET PO PRN ×2 (09:22→17:14)
[2019-07-25] MEDS: ACETAMINOPHEN 325 MG TABLET PO PRN ×2 (09:23→20:42)
[2019-07-25 11:54] LABS: MICROSCOPIC NOT IND
[2019-07-25] MEDS ORDERED: ALBUTEROL SULFATE 2.5 MG/3 ML NPPB PRN (12:30)
[2019-07-25] MEDS ORDERED: DOCUSATE 100 MG CAPSULE PO PRN (12:30)
[2019-07-25] MEDS: THIAMINE 100MG TABLET PO SCH (12:30)
[2019-07-25] MEDS ORDERED: ONDANSETRON ODT 4 MG PO PRN (12:30)
[2019-07-25 12:34] LABS: CULTURE INDICATED? NO
[2019-07-25] MEDS: FOLIC ACID 1 MG TABLET PO SCH (13:19)
[2019-07-25] MEDS: MULTIVITAMINS/MINERALS TABLET PO SCH (13:19)
[2019-07-25] MEDS: CARVEDILOL 25 MG TABLET PO SCH ×2 (13:20→18:30)
[2019-07-25 17:00] VITALS: BP 139/95
[2019-07-25 19:15] VITALS: BP 138/77
[2019-07-25] MEDS: LIDODERM REMOVE PATCH NOTE XX SCH (20:43)
[2019-07-26] MEDS: LORazepam 1MG TABLET PO PRN ×3 (00:52→21:01)
[2019-07-26 06:23] LABS: CHOL/HDL RATIO 1.8; LDL/HDL RATIO 0.6 (0.5-3.0)
[2019-07-26 07:20] VITALS: BP 154/97
[2019-07-26] MEDS: MULTIVITAMINS/MINERALS TABLET PO SCH (08:32)
[2019-07-26] MEDS: ACAMPROSATE 333 MG TABLET.DR PO SCH ×3 (08:33→21:01)
[2019-07-26] MEDS: CARVEDILOL 25 MG TABLET PO SCH ×2 (08:33→17:42)
[2019-07-26] MEDS: FOLIC ACID 1 MG TABLET PO SCH (08:33)
[2019-07-26] MEDS: LIDODERM 5% PATCH TD SCH (08:33)
[2019-07-26] MEDS: SERTRALINE 50MG TABLET PO SCH (08:33)
[2019-07-26] MEDS: THIAMINE 100MG TABLET PO SCH (08:37)
[2019-07-26] MEDS ORDERED: LORazepam 1MG TABLET PO ONE (15:00)
[2019-07-26 17:41] VITALS: BP 123/81
[2019-07-26 19:15] VITALS: BP 114/70
[2019-07-26] MEDS: LIDODERM REMOVE PATCH NOTE XX SCH (21:00)
[2019-07-27] MEDS: LORazepam 1MG TABLET PO PRN ×2 (04:38→12:47)
[2019-07-27] MEDS: ACETAMINOPHEN 325 MG TABLET PO PRN ×2 (04:45→08:29)
[2019-07-27 07:17] VITALS: BP 154/92
[2019-07-27] MEDS: SERTRALINE 50MG TABLET PO SCH (08:28)
[2019-07-27] MEDS: CARVEDILOL 25 MG TABLET PO SCH ×2 (08:28→17:26)
[2019-07-27] MEDS: FOLIC ACID 1 MG TABLET PO SCH (08:28)
[2019-07-27] MEDS: ACAMPROSATE 333 MG TABLET.DR PO SCH ×3 (08:28→20:23)
[2019-07-27] MEDS: MULTIVITAMINS/MINERALS TABLET PO SCH (08:28)
[2019-07-27] MEDS: LIDODERM 5% PATCH TD SCH (08:29)
[2019-07-27] MEDS: THIAMINE 100MG TABLET PO SCH (08:32)
[2019-07-27 10:00] VITALS: BP 128/84
[2019-07-27 19:51] VITALS: BP 134/81
[2019-07-27] MEDS: LIDODERM REMOVE PATCH NOTE XX SCH (21:00)
[2019-07-28 07:23] VITALS: BP 148/93
[2019-07-28] MEDS: CARVEDILOL 25 MG TABLET PO SCH ×2 (08:46→16:18)
[2019-07-28] MEDS: FOLIC ACID 1 MG TABLET PO SCH (08:47)
[2019-07-28] MEDS: ACAMPROSATE 333 MG TABLET.DR PO SCH ×2 (08:47→16:18)
[2019-07-28] MEDS: MULTIVITAMINS/MINERALS TABLET PO SCH (08:47)
[2019-07-28] MEDS: THIAMINE 100MG TABLET PO SCH (08:48)
[2019-07-28] MEDS: ACETAMINOPHEN 325 MG TABLET PO PRN (08:48)
[2019-07-28] MEDS: LIDODERM 5% PATCH TD SCH (09:07)
[2019-07-28] MEDS: SERTRALINE 50MG TABLET PO SCH (09:08)
[2019-07-28] MEDS ORDERED: SERT50TA28 PO (16:16)
[2019-07-28] MEDS ORDERED: ACAM333T7 PO (16:16)
[2019-07-28] MEDS ORDERED: MULT-484 PO (16:16)
[2019-07-28] MEDS ORDERED: CARV25TA12 PO (16:16)
== END 2019-07-28 16:39 | disposition home or self-care (01) | DRG 753 ==
LOC: 3E 16:56
PROVIDERS: ADMIT Psychiatry & Neurology Psychosomatic Medicine; ATTEND Psychiatry & Neurology Psychosomatic Medicine
DX: F31.30 Bipolar disorder, current episode depressed, mild or moderate severity, unspecified (principal); K85.90 Acute pancreatitis without necrosis or infection, unspecified; I27.20 Pulmonary hypertension, unspecified; R45.851 Suicidal ideations; E78.5 Hyperlipidemia, unspecified; F10.20 Alcohol dependence, uncomplicated; Y90.9 Presence of alcohol in blood, level not specified; F12.90 Cannabis use, unspecified, uncomplicated; F41.1 Generalized anxiety disorder; I10 Essential (primary) hypertension; J44.9 Chronic obstructive pulmonary disease, unspecified; M81.0 Age-related osteoporosis without current pathological fracture; Z79.899 Other long term (current) drug therapy; Z82.49 Family history of ischemic heart disease and other diseases of the circulatory system; Z87.891 Personal history of nicotine dependence; Z95.0 Presence of cardiac pacemaker
CPT/HCPCS: 36415; 80048; 80061; 81003; 82140; 82607; 83036; 83735; 84439; 84443; 85025; 93005

== ENCOUNTER 2020-08-20 10:18 | Emergency (ER) | payer MEDICAID ==
[~2020-08-20] VITALS: Ht 170.2 cm; Wt 60.1 kg
[~2020-08-20 10:18] MED LIST changes: +ACAM333T7 PO; +CARV25TA12 PO; -FOLI-17 PO; +FOLI1TAB32 PO; +HYDR-1067 PO; -HYDR-3240 PO; +METH-640 PO; -METH750T2 PO; -PANT40TA5 PO; +PANT40TA6 PO
[2020-08-20 10:23] VITALS: BP 151/100
--- NOTE | 2020-08-20 10:36 | NUR ---
PT BROUGHT TO ROOM FROM TRIAGE. PT CO SINUS INFECTION WITH SOME CHEST CONGESTION. PT STATED THAT SHE RECEIVED A NEGATIVE COVID TEST YESTERDAY. PT DENIES ANY FEVER,CP OR SOB. PT STATED THAT SHE HAS BEEN TAKING MUCINEX FOR SOME CHEST CONGESTION AND HAS BEEN COUGHING UP CLEAR/WHITE MUCOUS.
--- NOTE | 2020-08-20 11:26 | NUR ---
DISCHARGE INSTRUCTIONS REVIEWED WITH PT. ALL QUESTIONS ANSWERED AT THIS TIME
== END 2020-08-20 11:29 | disposition home or self-care (01) ==
LOC: ED 10:57
DX: J01.00 Acute maxillary sinusitis, unspecified (principal); J01.20 Acute ethmoidal sinusitis, unspecified; B96.89 Other specified bacterial agents as the cause of diseases classified elsewhere; I11.0 Hypertensive heart disease with heart failure; I50.9 Heart failure, unspecified; J44.9 Chronic obstructive pulmonary disease, unspecified; E78.5 Hyperlipidemia, unspecified; I95.9 Hypotension, unspecified; Z87.891 Personal history of nicotine dependence
CPT/HCPCS: 71045; 99283

== ENCOUNTER 2021-02-01 08:36 | Emergency (ER) | payer MEDICAID ==
[~2021-02-01] VITALS: Ht 170.2 cm; Wt 59.0 kg
[~2021-02-01 08:36] MED LIST changes: -HYDR-1067 PO; +HYDR-2214 PO; -VANC1VIA3 PO; +VANC1VIA36 PO
[2021-02-01 08:41] VITALS: BP 144/84
--- NOTE | 2021-02-01 09:07 | NUR ---
PT ELOPED FROM ROOM. PURSE LEFT BEHIND. VERIFIED W/ MARCO ARREOLA THAT PURSE BELONGS TO PT. PT LABEL PLACED AND GIVEN TO SECURITY.
== END 2021-02-01 09:09 | disposition left against medical advice (07) ==
LOC: ED 08:51
DX: M54.5 Low back pain (principal)